=== PATIENT | female | born 1960 | race African-American/Black ===

== ENCOUNTER 2017-05-07 12:19 | Emergency (ER) | payer OTHER ==
[2017-05-07] MEDS: IV NORMAL SALINE 1000ML BAG 1,000 ML IV (13:10)
[2017-05-07 13:13] LABS: ADD MAN DIFF? NO
[2017-05-07 13:17] LABS: BASO % 1 % (0-3); EOS % 0 % (0-3); HEMATOCRIT 41.1 % (36.0-47.0); HEMOGLOBIN 14.4 g/dL (12.0-15.5); LYMPH # 1.5 x10^3/uL (1.0-4.8); LYMPH % 27 % (24-48); MEAN CORPUSCULAR HEMOGLOBIN 36 pg (25-35); MEAN CORPUSCULAR HGB CONC 35 g/dL (31-37); MEAN CORPUSCULAR VOLUME 103 fL (79-100); MONO # 0.6 x10^3/uL (0.0-1.1); MONO % 10 % (0-9); NEUT # 3.5 x10^3uL (1.8-7.7); NEUT % 62 % (31-73); PLATELET COUNT 210 x10^3/uL (140-400); RED BLOOD COUNT 3.97 x10^6/uL (3.50-5.40); RED CELL DISTRIBUTION WIDTH 13.8 % (11.5-14.5); WHITE BLOOD COUNT 5.6 x10^3/uL (4.0-11.0)
[2017-05-07 13:28] LABS: PARTIAL THROMBOPLASTIN TIME 26 SEC (24-38); PROTHROMBIN TIME PATIENT 12.6 SEC (11.7-14.0)
[2017-05-07 13:36] LABS: D-DIMER 0.32 ug/mlFEU (0.00-0.50)
[2017-05-07 13:48] LABS: INFLUENZA A PATIENT NEGATIVE (NEGATIVE); INFLUENZA B PATIENT NEGATIVE (NEGATIVE); OBC FLU VALID
[2017-05-07 14:07] LABS: ANION GAP 13 (6-14); BLOOD UREA NITROGEN 8 mg/dL (7-20); BUN/CREATININE RATIO 10 (6-20); CALCIUM 9.3 mg/dL (8.5-10.1); CARBON DIOXIDE 27 mmol/L (21-32); CHLORIDE 101 mmol/L (98-107); CREATININE 0.8 mg/dL (0.6-1.0); GFR 89.5; GLUCOSE 111 mg/dL (70-99); POTASSIUM 3.5 mmol/L (3.5-5.1); SODIUM 141 mmol/L (136-145)
[2017-05-07 14:08] LABS: ETHANOL < 10 mg/dL (0-10)
[2017-05-07 14:14] LABS: ALBUMIN 3.8 g/dL (3.4-5.0); ALK PHOS 92 U/L (46-116); ALT (SGPT) 33 U/L (14-59); AST (SGOT) 38 U/L (15-37); CREATINE KINASE 83 U/L (26-192); MAGNESIUM 1.9 mg/dL (1.8-2.4); TOTAL BILIRUBIN 0.7 mg/dL (0.2-1.0); TOTAL PROTEIN 7.6 g/dL (6.4-8.2)
[2017-05-07 14:17] LABS: TROPONINI < 0.017 ng/mL (0.000-0.055)
[2017-05-07 14:21] LABS: NT-PRO BNP 186 pg/mL (0-124)
== END 2017-05-07 15:09 | disposition home or self-care (01) ==
LOC: ER 12:19
DX: R07.89 Other chest pain (principal); R06.02 Shortness of breath; R06.00 Dyspnea, unspecified; R20.2 Paresthesia of skin; I10 Essential (primary) hypertension; F12.10 Cannabis abuse, uncomplicated; Z88.2 Allergy status to sulfonamides; F10.10 Alcohol abuse, uncomplicated; Z88.6 Allergy status to analgesic agent
CPT/HCPCS: 36415; 71045; 80053; 82550; 83735; 83880; 84484; 85025; 85379; 85610; 85730; 87804; 87804-59; 93005; 96361; 96374; 99285-25; G0480; J2060; J7030

== ENCOUNTER 2019-09-23 17:50 | Inpatient (IN) | payer MEDICAID ==
[~2019-09-23] VITALS: Ht 165.1 cm; Wt 59.2 kg
[~2019-09-23 17:50] MED LIST: ALPR0.25 PO; ALPR1TAB2 PO; AMLO10TA8 PO; BENZ1LOZ4 PO; CARV6.2511 PO; CETI10TA24 PO; DIPH25CA58 PO; DOXY100T PO; GUAI600T47 PO; HYDR-2145 PO; HYDR-2761 PO; HYDR-2769 PO; LEVO500T59 PO; LISI-338 PO; MORP-15 PO; NITR100C62 PO; PANT40TA77 PO; SERT25TA PO
--- NOTE | 2019-09-23 18:15 | PHYS DOC ---
Past Medical History Past Medical History: Anxiety, Hypertension, Other Additional Past Medical Histor: seasonal allergies, osteoporosis, RA Past Surgical History: Hysterectomy, Oophorectomy, Other Additional Past Surgical Histo: left ankle fracture repair, right hand surgery Smoking Status: Current Every Day Smoker Alcohol Use: Heavy Drug Use: Marijuana General Adult EDM: Chief Complaint: CHEST PAIN HPI: HPI: Patient is a 58 year old female who presents with states 2 days ago began having chest pressure that is generalized over the whole chest making her short of air. Patient is very anxious. She has been under a lot of stress and having a lot of anxiety due to a in the family. She states that she is been trying to stop smoking but has been smoking because of a in the family. She states that she is had some nausea and vomiting. She states that she cannot take aspirin or ibuprofen or naproxen because it makes her very sick and makes her pass out. Patient states that she has a history of hypertension, RA, osteoporosis, anxiety. Patient is very tearful and anxious in the room. Patient rates her pressure chest pain a 10. Review of Systems: Review of Systems: Respiratory: Denies cough. + shortness of breath. [] Cardiovascular: chest pain. Denies edema. [] Heart Score: HEART Score for Chest Pain: HEART Score for Chest Pain Response (Comments) Value History Moderately Suspicious 1 ECG Nonspecific Repolarizatio 1 Age >45 - < 65 1 Risk Factors >3 Risk Factors or Hx CAD 2 Troponin < Normal Limit 0 Total 5 Risk Factors: Risk Factors: DM, Current or recent (<one month) smoker, HTN, HLP, family history of CAD, obesity. Risk Scores: Score 0 - 3: 2.5% MACE over next 6 weeks - Discharge Home Score 4 - 6: 20.3% MACE over next 6 weeks - Admit for Clinical Observation Score 7 - 10: 72.7% MACE over next 6 weeks - Early Invasive Strategies Allergies: Allergies: Allergies Coded Allergies Type Severity Reaction Last Updated Verified Sulfa (Sulfonamide Antibiotics) Allergy Intermediate 08/09/17 Yes aspirin Allergy Intermediate 09/11/15 Yes ibuprofen Allergy Intermediate 09/11/15 Yes naproxen Allergy Intermediate 08/09/17 Yes Physical Exam: PE: Constitutional: Well developed, well nourished, no acute distress, non-toxic appearance. [] HENT: Normocephalic, atraumatic, bilateral external ears normal, oropharynx moist, no oral exudates, nose normal. [] Eyes: PERRLA, EOMI, conjunctiva normal, no discharge. [] Neck: Normal range of motion, no tenderness, supple, no stridor. [] Cardiovascular:Heart rate regular rhythm, no murmur [] Lungs & Thorax: Bilateral breath sounds clear to auscultation [] Abdomen: Bowel sounds normal, soft, no tenderness, no masses, no pulsatile masses. [] Skin: Warm, dry, no erythema, no rash. [] Back: No tenderness, no CVA tenderness. [] Extremities: No tenderness, no cyanosis, no clubbing, ROM intact, no edema. [] Neurologic: Alert and oriented X 3, normal motor function, normal sensory function, no focal deficits noted. [] Psychologic: Anxious, affect normal, judgement normal, mood normal. [] EKG: EK and read by Dr. Monroy is sinus rhythm with LVH repolarization abnormality and PVCs. No STEMI. [] Radiology/Procedures: Radiology/Procedures: [] Impression: [facility] [address] [facility] [place] [address] IMAGING REPORT Signed PATIENT: BERNABE NELSON JACCOUNT: [id number] : 1960 LOCATION: ER AGE: 58 SEX: F EXAM STATUS: REG ER ORD. PHYSICIAN: AMALIA TEIXEIRA APRN REASON: chest pain, chills x3 days PROCEDURE: PORTABLE CHEST 1V Exam: Chest one view INDICATION: Chest pain TECHNIQUE: Frontal view of the chest Comparisons: 12/18/2018 FINDINGS: The cardiomediastinal silhouette and pulmonary vessels are within normal limits. The lung and pleural spaces are clear. IMPRESSION: No acute cardiopulmonary process. Electronically signed by: Sherif Stringer MD (09/23/2019 6:53 PM) [id number] DICTATED and SIGNED BY: SHERIF STRINGER MD DATE: 09/23/19 1853 Course & Med Decision Making: Course & Med Decision Making Pertinent Labs and Imaging studies reviewed. (See chart for details) Alert and oriented. Speaks in full complete sentences. Very anxious and tearful. No extremity swelling. Lungs are clear to auscultation all lobes. Vital signs are within normal limits. EKG shows sinus rhythm with ventricular premature complexes but no STEMI. Skin pink warm and dry. Patient has hypo-kalemia. Patient's potassium is 2.4. I ordered potassium p.o. I spoke to Dr. Abraham for admission. [] Dinesh Disclaimer: Dinesh Disclaimer: This electronic medical record was generated, in whole or in part, using a voice recognition dictation system. Departure Departure Impression: Primary Impression: Chest pain Qualified Codes: R07.9 - Chest pain, unspecified Additional Impression: Hypokalemia Disposition: ADMITTED INPATIENT Admitting Physician: HARLEY Condition: STABLE Referrals: NO PCP (PCP) Justicifation of Admission Dx: Justifications for Admission: Justification of Admission Dx: Yes CHF: Sev. Electrolyte Abnormal Angina: Symp at Rest AMALIA TEIXEIRA CLINICAL NURSE OCCUPATIONAL MEDICINE Sep 23, 2019 18:15
--- NOTE | 2019-09-23 18:20 | EKG ---
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
[2019-09-23 18:42] LABS: BASO # 0.1 x10^3/uL (0.0-0.2); BASO % 1 % (0-3); EOS # 0.1 x10^3/uL (0.0-0.7); EOS % 2 % (0-3); HEMOGLOBIN 13.4 g/dL (12.0-15.5); LYMPH # 1.5 x10^3/uL (1.0-4.8); LYMPH % 18 % (24-48); MEAN CORPUSCULAR HEMOGLOBIN 36 pg (25-35); MEAN CORPUSCULAR HGB CONC 35 g/dL (31-37); MEAN CORPUSCULAR VOLUME 103 fL (79-100); MONO # 1.2 x10^3/uL (0.0-1.1); MONO % 15 % (0-9); NEUT # 5.4 x10^3/uL (1.8-7.7); NEUT % 65 % (31-73); PLATELET COUNT 360 x10^3/uL (140-400); RED BLOOD COUNT 3.68 x10^6/uL (3.50-5.40); RED CELL DISTRIBUTION WIDTH 13.7 % (11.5-14.5); WHITE BLOOD COUNT 8.3 x10^3/uL (4.0-11.0)
[2019-09-23 18:52] LABS: PROTHROMBIN TIME PATIENT 13.6 SEC (11.7-14.0)
--- NOTE | 2019-09-23 18:56 | RAD ---
Exam: Chest one view INDICATION: Chest pain TECHNIQUE: Frontal view of the chest Comparisons: 12/18/2018 FINDINGS: The cardiomediastinal silhouette and pulmonary vessels are within normal limits. The lung and pleural spaces are clear. IMPRESSION: No acute cardiopulmonary process. Electronically signed by: Sherif Queen MD (09/23/2019 6:53 PM) [id number]
[2019-09-23 19:03] LABS: ALBUMIN 3.1 g/dL (3.4-5.0); ALBUMIN/GLOBULIN RATIO 0.6 (1.0-1.7); CALCIUM 9.1 mg/dL (8.5-10.1); CREATININE 0.8 mg/dL (0.6-1.0); GFR 88.8; TOTAL BILIRUBIN 0.6 mg/dL (0.2-1.0); TOTAL PROTEIN 8.1 g/dL (6.4-8.2)
[2019-09-23 19:06] LABS: POTASSIUM 2.4 mmol/L (3.5-5.1)
[2019-09-23] MEDS ORDERED: fentaNYL PF VIAL 100 MCG/2 ML VIAL IVP ONE (19:15)
[2019-09-23] MEDS ORDERED: ONDANSETRON PF 4 MG/2 ML VIAL. IVP ONE (19:15)
[2019-09-23] MEDS ORDERED: POTASSIUM CHLORIDE 20 MEQ TABLET.ER. PO ONE ×2 (19:15→21:15)
[2019-09-23] MEDS ORDERED: ONDANSETRON PF 4 MG/2 ML VIAL. IV PRN (19:30)
[2019-09-23] MEDS ORDERED: IV NORMAL SALINE 1000ML BAG 1,000 ML IV ONE (19:45)
[2019-09-23 20:07] LABS: BILIRUBIN,URINE SMALL (NEG); CLARITY,URINE CLEAR; COLOR,URINE AMBER; NITRITE,URINE NEGATIVE (NEG); PROTEIN,URINE NEGATIVE (NEG-TRACE)
[2019-09-23 20:15] LABS: SQUAMOUS EPITHELIAL CELL,UR FEW /LPF
[2019-09-23 20:16] LABS: AMORPHOUS SEDIMENT,UR PRESENT /HPF; BACTERIA,URINE 0 /HPF (0-FEW); RBC,URINE 0 /HPF (0-2)
[2019-09-23 20:18] LABS: BARBITURATES NEG (NEG); BENZODIAZEPINES POS (NEG); CANNABINOIDS POS (NEG); COCAINE NEG (NEG); METHADONE NEG (NEG); OPIATES POS (NEG); PHENCYCLIDINE NEG (NEG)
[2019-09-23 20:19] LABS: AMPHETAMINE/METHAMPHETAMINE NEG (NEG)
[2019-09-23] MEDS ORDERED: MAGNESIUM SULFATE 2GM 50 ML IV ONE (21:00)
--- NOTE | 2019-09-23 21:01 | PDOC1 ---
History and Physical Date of Admission Date of Admission DATE: 09/23/19 TIME: 20:57 Source Source: Chart review, Patient History of Present Illness History of Present Illness Ms. Krissy diaz is a 58 year old female admit for worsening chest pressure that is generalized over the whole chest making her short of air. Pain has worsened over 2 days, and she is very anxious. marked stress, she has started smoking cigarettes again. She has been under a lot of stress and having a lot of anxiety due to a in the family. She states that she is had some nausea and vomiting. She states that she cannot take aspirin or ibuprofen or naproxen because it makes her very sick and makes her pass out. Patient states that she has a history of hypertension, RA, osteoporosis, anxiety. Patient is very tearful and anxious in the room. Patient rates her pressure chest pain a 9 out of 10. Past Medical History Cardiovascular: HTN Pulmonary: Asthma CENTRAL NERVOUS SYSTEM: Other GI: No pertinent hx Heme/Onc: No pertinent hx Hepatobiliary: No pertinent hx Psych: Anxiety Musculoskeletal: Osteoarthritis Rheumatologic: Rheumatoid arthritis Infectious disease: No pertinent hx Renal/: No pertinent hx Endocrine: Osteoporosis Past Surgical History Past Surgical History: Hysterectomy, Other Family History Family History: Heart Disease Social History Smoke: 1 pack per day ALCOHOL: rare Drugs: None Current Problem List Problem List Problems Medical Problems: (1) Chest pain Status: Acute (2) Hypokalemia Status: Acute Current Medications Current Medications Current Medications Potassium Chloride (Klor-Con) 60 meq 1X ONCE PO Last administered on 09/23/19at 19:26; Start 09/23/19 at 19:15; Stop 09/23/19 at 19:16; Status DC Ondansetron HCl (Zofran) 4 mg 1X ONCE IVP Last administered on 09/23/19at 19:25; Start 09/23/19 at 19:15; Stop 09/23/19 at 19:16; Status DC Fentanyl Citrate (Fentanyl 2ml Vial) 50 mcg 1X ONCE IVP Last administered on 09/23/19at 19:26; Start 09/23/19 at 19:15; Stop 09/23/19 at 19:16; Status DC Ondansetron HCl (Zofran) 4 mg PRN Q8HRS PRN IV NAUSEA/VOMITING; Start 09/23/19 at 19:30; Stop 09/24/19 at 19:29 Fentanyl Citrate (Fentanyl 2ml Vial) 50 mcg PRN Q1HR PRN IV PAIN; Start 09/23/19 at 19:30; Stop 09/24/19 at 19:29 Sodium Chloride 1,000 ml @ 1,000 mls/hr 1X ONCE IV Last administered on 09/23/19at 19:55; Start 09/23/19 at 19:45; Stop 09/23/19 at 20:44; Status DC Active Scripts Active Mucinex (Guaifenesin) 600 Mg Tablet.er 600 Mg PO BID Sore Throat Lozenge (Benzocaine/Menthol) 1 Each Lozenge 1 Ky PO PRN Q2HRS PRN Doxycycline Hyclate 100 Mg Tablet 100 Mg PO BID Morphine Sulfate Er (Morphine Sulfate) 15 Mg Tablet.er 15 Mg PO BID Xanax (Alprazolam) 1 Mg Tablet 1 Tab PO TID PRN Pantoprazole Sodium (Pantoprazole Sodium) 40 Mg Tablet.dr 40 Mg PO DAILYAC Reported Levaquin (Levofloxacin) 500 Mg Tablet 1 Tab PO DAILY Amlodipine Besylate 10 Mg Tablet 10 Mg PO DAILY Carvedilol (Carvedilol) 6.25 Mg Tablet 1 Tab PO BID Benadryl (Diphenhydramine Hcl) 25 Mg Capsule 1 Cap PO QHS Zyrtec (Cetirizine Hcl) 10 Mg Tablet 1 Tab PO DAILY Allergies Allergies: Coded Allergies: Sulfa (Sulfonamide Antibiotics) (Verified Allergy, Intermediate, 08/09/17) aspirin (Verified Allergy, Intermediate, 09/11/15) ibuprofen (Verified Allergy, Intermediate, 09/11/15) naproxen (Verified Allergy, Intermediate, 08/09/17) ROS General: YES: Fatigue, Malaise; No: Chills, Night Sweats, Appetite, Other PSYCHOLOGICAL ROS: No: Anxiety, Behavioral Disorder, Concentration difficultie, Decreased libido, Depression, Disorientation, Hallucinations, Hostility, Irritablity, Memory difficulties, Mood Swings, Obsessive thoughts, Physical abuse, Sexual abuse, Sleep disturbances, Suicidal ideation, Other Eyes: No Blurry vision, No Decreased vision, No Double vision, No Dry eyes, No Excessive tearing, No Eye Pain, No Itchy Eyes, No Loss of vision, No Photophobia, No Scotomata, No Uses contacts, No Uses glasses, No Other HEENT: YES: Heacaches; No: Visual Changes, Hearing change, Nasal congestion, Nasal discharge, Oral lesions, Sinus pain, Sore Throat, Epistaxis, Sneezing, Snoring, Tinnitus, Vertigo, Vocal changes, Other Respiratory: No: Cough, Hemoptysis, Orthopnea, Pleuritic Pain, Shortness of breath, SOB with excertion, Sputum Changes, Stridor, Tachypnea, Wheezing, Other Cardiovascular: yes Chest Pain Gastrointestinal: Yes Nausea; No Vomiting, No Abdominal Pain, No Diarrhea, No Constipation, No Melena, No Hematochezia, No Other Genitourinary: No Dysuria, No Frequency, No Incontinence, No Hematuria, No Retention, No Discharge, No Urgency, No Pain, No Flank Pain, No Other, No , No , No , No , No , No , No Musculoskeletal: Yes Joint Stiffness, Yes Muscular Weakness; No Gait Disturbance, No Joint Pain, No Joint Swelling, No Muscle Pain, No Pain In:, No Swelling In:, No Other Neurological: No Behavorial Changes, No Bowel/Bladder ControlChng, No Confusion, No Dizziness, No Gait Disturbance, No Headaches, No Impaired Coord/balance, No Memory Loss, No Numbness/Tingling, No Seizures, No Speech Problems, No Tremors, No Visual Changes, No Weakness, No Other Skin: Yes Dry Skin Physical Exam General: Alert, Cooperative, mild distress HEENT: Atraumatic, Mucous membr. moist/pink Lungs: Normal air movement Heart: RRR, no gallops, no murmurs Extremities: No edema Skin: No breakdown, No significant lesion Neuro: Normal speech, Sensation intact Psych/Mental Status: Mental status NL, Mood NL Vitals Vitals Vital Signs Date Time Temp Pulse Resp B/P (MAP) Pulse Ox O2 Delivery O2 Flow Rate FiO2 09/23/19 19:26 16 100 Room Air 09/23/19 18:01 98.5 102 141/98 (112) 98.5 Labs Labs Laboratory Tests Test 09/23/19 18:33 09/23/19 19:55 White Blood Count 8.3 x10^3/uL (4.0-11.0) Red Blood Count 3.68 x10^6/uL (3.50-5.40) Hemoglobin 13.4 g/dL (12.0-15.5) Hematocrit 38.0 % (36.0-47.0) Mean Corpuscular Volume 103 fL (79-100) Mean Corpuscular Hemoglobin 36 pg (25-35) Mean Corpuscular Hemoglobin Concent 35 g/dL (31-37) Red Cell Distribution Width 13.7 % (11.5-14.5) Platelet Count 360 x10^3/uL (140-400) Neutrophils (%) (Auto) 65 % (31-73) Lymphocytes (%) (Auto) 18 % (24-48) Monocytes (%) (Auto) 15 % (0-9) Eosinophils (%) (Auto) 2 % (0-3) Basophils (%) (Auto) 1 % (0-3) Neutrophils # (Auto) 5.4 x10^3/uL (1.8-7.7) Lymphocytes # (Auto) 1.5 x10^3/uL (1.0-4.8) Monocytes # (Auto) 1.2 x10^3/uL (0.0-1.1) Eosinophils # (Auto) 0.1 x10^3/uL (0.0-0.7) Basophils # (Auto) 0.1 x10^3/uL (0.0-0.2) Prothrombin Time 13.6 SEC (11.7-14.0) Prothromb Time International Ratio 1.1 (0.8-1.1) Sodium Level 139 mmol/L (136-145) Potassium Level 2.4 mmol/L (3.5-5.1) Chloride Level 98 mmol/L (98-107) Carbon Dioxide Level 28 mmol/L (21-32) Anion Gap 13 (6-14) Blood Urea Nitrogen 7 mg/dL (7-20) Creatinine 0.8 mg/dL (0.6-1.0) Estimated GFR (Cockcroft-Gault) 88.8 BUN/Creatinine Ratio 9 (6-20) Glucose Level 138 mg/dL (70-99) Calcium Level 9.1 mg/dL (8.5-10.1) Total Bilirubin 0.6 mg/dL (0.2-1.0) Aspartate Amino Transf (AST/SGOT) 27 U/L (15-37) Alanine Aminotransferase (ALT/SGPT) 14 U/L (14-59) Alkaline Phosphatase 150 U/L (46-116) Troponin I Quantitative < 0.017 ng/mL (0.000-0.055) HN-Ail-O-Type Natriuretic Peptide 246 pg/mL (0-124) Total Protein 8.1 g/dL (6.4-8.2) Albumin 3.1 g/dL (3.4-5.0) Albumin/Globulin Ratio 0.6 (1.0-1.7) Lipase 81 U/L (73-393) Urine Collection Type Unknown Urine Color Elicia Urine Clarity Clear Urine pH 6.0 (<5.0-8.0) Urine Specific Dawn 1.020 (1.000-1.030) Urine Protein Negative mg/dL (NEG-TRACE) Urine Glucose (UA) Negative mg/dL (NEG) Urine Ketones (Stick) Negative mg/dL (NEG) Urine Blood Negative (NEG) Urine Nitrite Negative (NEG) Urine Bilirubin Small (NEG) Urine Urobilinogen Dipstick 1.0 mg/dL (0.2 mg/dL) Urine Leukocyte Esterase Small (NEG) Urine RBC 0 /HPF (0-2) Urine WBC 5-10 /HPF (0-4) Urine Squamous Epithelial Cells Few /LPF Urine Amorphous Sediment Present /HPF Urine Bacteria 0 /HPF (0-FEW) Urine Mucus Slight /LPF Urine Opiates Screen Pos (NEG) Urine Methadone Screen Neg (NEG) Urine Barbiturates Neg (NEG) Urine Phencyclidine Screen Neg (NEG) Urine Amphetamine/Methamphetamine Neg (NEG) Urine Benzodiazepines Screen Pos (NEG) Urine Cocaine Screen Neg (NEG) Urine Cannabinoids Screen Pos (NEG) Urine Ethyl Alcohol Neg (NEG) Laboratory Tests Test 09/23/19 18:33 09/23/19 19:55 White Blood Count 8.3 x10^3/uL (4.0-11.0) Red Blood Count 3.68 x10^6/uL (3.50-5.40) Hemoglobin 13.4 g/dL (12.0-15.5) Hematocrit 38.0 % (36.0-47.0) Mean Corpuscular Volume 103 fL (79-100) Mean Corpuscular Hemoglobin 36 pg (25-35) Mean Corpuscular Hemoglobin Concent 35 g/dL (31-37) Red Cell Distribution Width 13.7 % (11.5-14.5) Platelet Count 360 x10^3/uL (140-400) Neutrophils (%) (Auto) 65 % (31-73) Lymphocytes (%) (Auto) 18 % (24-48) Monocytes (%) (Auto) 15 % (0-9) Eosinophils (%) (Auto) 2 % (0-3) Basophils (%) (Auto) 1 % (0-3) Neutrophils # (Auto) 5.4 x10^3/uL (1.8-7.7) Lymphocytes # (Auto) 1.5 x10^3/uL (1.0-4.8) Monocytes # (Auto) 1.2 x10^3/uL (0.0-1.1) Eosinophils # (Auto) 0.1 x10^3/uL (0.0-0.7) Basophils # (Auto) 0.1 x10^3/uL (0.0-0.2) Prothrombin Time 13.6 SEC (11.7-14.0) Prothromb Time International Ratio 1.1 (0.8-1.1) Sodium Level 139 mmol/L (136-145) Potassium Level 2.4 mmol/L (3.5-5.1) Chloride Level 98 mmol/L (98-107) Carbon Dioxide Level 28 mmol/L (21-32) Anion Gap 13 (6-14) Blood Urea Nitrogen 7 mg/dL (7-20) Creatinine 0.8 mg/dL (0.6-1.0) Estimated GFR (Cockcroft-Gault) 88.8 BUN/Creatinine Ratio 9 (6-20) Glucose Level 138 mg/dL (70-99) Calcium Level 9.1 mg/dL (8.5-10.1) Total Bilirubin 0.6 mg/dL (0.2-1.0) Aspartate Amino Transf (AST/SGOT) 27 U/L (15-37) Alanine Aminotransferase (ALT/SGPT) 14 U/L (14-59) Alkaline Phosphatase 150 U/L (46-116) Troponin I Quantitative < 0.017 ng/mL (0.000-0.055) SF-Exp-O-Type Natriuretic Peptide 246 pg/mL (0-124) Total Protein 8.1 g/dL (6.4-8.2) Albumin 3.1 g/dL (3.4-5.0) Albumin/Globulin Ratio 0.6 (1.0-1.7) Lipase 81 U/L (73-393) Urine Collection Type Unknown Urine Color Elicia Urine Clarity Clear Urine pH 6.0 (<5.0-8.0) Urine Specific Dawn 1.020 (1.000-1.030) Urine Protein Negative mg/dL (NEG-TRACE) Urine Glucose (UA) Negative mg/dL (NEG) Urine Ketones (Stick) Negative mg/dL (NEG) Urine Blood Negative (NEG) Urine Nitrite Negative (NEG) Urine Bilirubin Small (NEG) Urine Urobilinogen Dipstick 1.0 mg/dL (0.2 mg/dL) Urine Leukocyte Esterase Small (NEG) Urine RBC 0 /HPF (0-2) Urine WBC 5-10 /HPF (0-4) Urine Squamous Epithelial Cells Few /LPF Urine Amorphous Sediment Present /HPF Urine Bacteria 0 /HPF (0-FEW) Urine Mucus Slight /LPF Urine Opiates Screen Pos (NEG) Urine Methadone Screen Neg (NEG) Urine Barbiturates Neg (NEG) Urine Phencyclidine Screen Neg (NEG) Urine Amphetamine/Methamphetamine Neg (NEG) Urine Benzodiazepines Screen Pos (NEG) Urine Cocaine Screen Neg (NEG) Urine Cannabinoids Screen Pos (NEG) Urine Ethyl Alcohol Neg (NEG) VTE Prophylaxis Ordered VTE Prophylaxis Devices: No VTE Pharmacological Prophylaxi: Yes Assessment/Plan Assessment/Plan chest pain, angina, r/o ACS anxiety disorder, reassurance given tobacco use disorder marked hypokalemia RA htn she has been seeing Emily Chen for primary care but is thinking of changing, she is upset that she is back in the hospital. Justicifation of Admission Dx: Justifications for Admission: Justification of Admission Dx: Yes Angina: New-Onset (with hypokalemia) DENVER CAVAZOS MD Sep 23, 2019 21:01
[2019-09-23] MEDS ORDERED: NICOTINE 21MG PATCH. TD PRN (21:15)
[2019-09-23] MEDS ORDERED: BENZOCAINE/MENTHOL LOZENGE. PO PRN (21:15)
[2019-09-23 21:47] VITALS: BP 166/82
[2019-09-23] MEDS: fentaNYL PF VIAL 100 MCG/2 ML VIAL IV PRN (22:04)
[2019-09-23 22:15] VITALS: BP 143/90
[2019-09-23] MEDS: ALPRAZolam 1 MG TABLET PO PRN (22:43)
[2019-09-23] MEDS ORDERED: MORPHINE IR 15 MG TABLET PO ONE (23:00)
[2019-09-24] MEDS: oxyCODONE/APAP 5/325 1 TAB TABLET PO PRN ×4 (00:08→17:30)
[2019-09-24 03:01] VITALS: BP 123/91
[2019-09-24 07:00] VITALS: BP 111/51
[2019-09-24] MEDS: fentaNYL PF VIAL 100 MCG/2 ML VIAL IV PRN ×2 (07:54→11:45)
[2019-09-24] MEDS: ALPRAZolam 1 MG TABLET PO PRN ×2 (07:54→17:30)
[2019-09-24] MEDS: CARVEDILOL 6.25 MG TABLET. PO SCH ×2 (08:00→17:00)
[2019-09-24] MEDS: CETIRIZINE HCL 10 MG TABLET. PO SCH (08:43)
[2019-09-24] MEDS: POTASSIUM CHLORIDE 20 MEQ TABLET.ER. PO SCH (08:43)
[2019-09-24] MEDS: amLODIPine BESYLATE 10 MG TABLET PO SCH (08:43)
[2019-09-24] MEDS: MORPHINE IR 15 MG TABLET PO SCH ×2 (08:43→21:06)
[2019-09-24] MEDS: ENOXAPARIN 40 MG/0.4 ML SYRINGE. SQ SCH (08:44)
--- NOTE | 2019-09-24 10:16 | PDOC2 ---
CARDIAC CONSULT DATE OF CONSULT Date of Consult DATE: 09/24/19 TIME: 09:32 REASON FOR CONSULT Reason for Consult: Chest pain REFERRING PHYSICIAN Referring Physician: Bernadette SOURCE Source: Chart review, Patient HISTORY OF PRESENT ILLNESS HISTORY OF PRESENT ILLNESS This is an anxious 58 yo female admitted for complains of chest pain and abdominal pain. Her pain is mainly from ribcage region to upper abdomen then to chest. This is sharp sometimes stabbing. Her chest pain is trigerred with palpation and positional changes as well as deep breathing. Reports that in the last 4 days she has not been feeling well weak. She tried to medicate herself and dont known what is going and decided to take the rest of her antibiotics which she prematurely discontinued from before from unknown time since she was getting better. She had 1 bout of vomiting but has been watery stools and everytime she eats she gets diarrhea. She has not really eaten much of anything for about 4 days now and feels.weak. No SOA per se but unable to take a deep breath since it hurts for her to take a deep breath. She did fall a week ago with no trauma due to feeling weak. PAST MEDICAL HISTORY Past Medical History Cardiovascular: HTN GI: GERD Heme/Onc: No pertinent hx Hepatobiliary: Hep C Psych: Anxiety Musculoskeletal: Osteoarthritis Rheumatologic: Rheumatoid arthritis (?) ENT: Allergic Rhinitis Renal/: No pertinent hx Endocrine: Osteoporosis Dermatology: No pertinent hx PAST SURGICAL HISTORY Past Surgical History Hysterectomy, Other (left ankle and hand surgery) FAMILY HISTORY Family History: Heart Disease (father) SOCIAL HISTORY Smoke: <1 pack per day ALCOHOL: rare Drugs: None Lives: with Family CURRENT MEDICATIONS CURRENT MEDICATIONS Current Medications Medications (Trade) Dose Ordered Sig/Neelam Route PRN Reason Start Time Stop Time Status Last Admin Dose Admin Potassium Chloride (Klor-Con) 60 meq 1X ONCE PO 09/23/19 19:15 09/23/19 19:16 DC 09/23/19 19:26 Ondansetron HCl (Zofran) 4 mg 1X ONCE IVP 09/23/19 19:15 09/23/19 19:16 DC 09/23/19 19:25 Fentanyl Citrate (Fentanyl 2ml Vial) 50 mcg 1X ONCE IVP 09/23/19 19:15 09/23/19 19:16 DC 09/23/19 19:26 Fentanyl Citrate (Fentanyl 2ml Vial) 50 mcg PRN Q1HR PRN IV PAIN 09/23/19 19:30 09/24/19 19:29 09/24/19 07:54 Sodium Chloride 1,000 ml @ 1,000 mls/hr 1X ONCE IV 09/23/19 19:45 09/23/19 20:44 DC 09/23/19 19:55 Magnesium Sulfate 50 ml @ 25 mls/hr 1X ONCE IV 09/23/19 21:00 09/23/19 22:59 DC 09/23/19 22:43 Potassium Chloride (Klor-Con) 20 meq DAILY PO 09/24/19 09:00 09/24/19 08:43 Potassium Chloride (Klor-Con) 20 meq 1X ONCE PO 09/23/19 21:15 09/23/19 21:16 DC 09/23/19 22:10 Alprazolam (Xanax) 1 mg PRN TID PRN PO ANXIETY / AGITATION 09/23/19 21:15 09/24/19 07:54 Amlodipine Besylate (Norvasc) 10 mg DAILY PO 09/24/19 09:00 09/24/19 08:43 Cetirizine HCl (ZyrTEC) 10 mg DAILY PO 09/24/19 09:00 09/24/19 08:43 Enoxaparin Sodium (Lovenox 40mg Syringe) 40 mg DAILY SQ 09/24/19 09:00 09/24/19 08:44 Oxycodone/ Acetaminophen (Percocet 5/325) 1 tab PRN Q4HRS PRN PO PAIN 09/23/19 23:00 09/24/19 08:43 Morphine Sulfate (Morphine Ir) 15 mg BID PO 09/24/19 09:00 09/24/19 08:43 Morphine Sulfate (Morphine Ir) 15 mg 1X ONCE PO 09/23/19 23:00 09/23/19 23:07 DC 09/24/19 00:08 ALLERGIES ALLERGIES: Coded Allergies: Sulfa (Sulfonamide Antibiotics) (Verified Allergy, Intermediate, 08/09/17) aspirin (Verified Allergy, Intermediate, 09/11/15) ibuprofen (Verified Allergy, Intermediate, 09/11/15) naproxen (Verified Allergy, Intermediate, 08/09/17) ROS Review of System 14 point ROS evaluated with pertinent positives noted per HPI PHYSICAL EXAM General: Alert, Oriented X3, Cooperative, No acute distress HEENT: Atraumatic, Mucous membr. moist/pink Lungs: Clear to auscultation, Normal air movement Heart: Regular rate (SR), Normal S1, Normal S2, No murmurs Abdomen: Soft, No tenderness Extremities: No cyanosis, No edema Skin: No breakdown, No significant lesion Neuro: Normal speech, Sensation intact Psych/Mental Status: Mental status NL, Mood NL MUSCULOSKELETAL: Osteoarthritic changes both hands VITALS/I&O VITALS/I&O: Vital Signs Date Time Temp Pulse Resp B/P (MAP) Pulse Ox O2 Delivery O2 Flow Rate FiO2 09/24/19 08:43 20 Room Air 09/24/19 08:43 77 111/51 09/24/19 07:00 97.6 98 97.6 I & O 09/23/19 09/23/19 09/24/19 15:00 23:00 07:00 Intake Total 1000 ml 0 ml Balance 1000 ml 0 ml LABS Lab: Laboratory Tests Test 09/23/19 18:33 09/23/19 19:55 09/24/19 05:25 White Blood Count 8.3 x10^3/uL (4.0-11.0) Red Blood Count 3.68 x10^6/uL (3.50-5.40) Hemoglobin 13.4 g/dL (12.0-15.5) Hematocrit 38.0 % (36.0-47.0) Mean Corpuscular Volume 103 fL (79-100) H Mean Corpuscular Hemoglobin 36 pg (25-35) H Mean Corpuscular Hemoglobin Concent 35 g/dL (31-37) Red Cell Distribution Width 13.7 % (11.5-14.5) Platelet Count 360 x10^3/uL (140-400) Neutrophils (%) (Auto) 65 % (31-73) Lymphocytes (%) (Auto) 18 % (24-48) L Monocytes (%) (Auto) 15 % (0-9) H Eosinophils (%) (Auto) 2 % (0-3) Basophils (%) (Auto) 1 % (0-3) Neutrophils # (Auto) 5.4 x10^3/uL (1.8-7.7) Lymphocytes # (Auto) 1.5 x10^3/uL (1.0-4.8) Monocytes # (Auto) 1.2 x10^3/uL (0.0-1.1) H Eosinophils # (Auto) 0.1 x10^3/uL (0.0-0.7) Basophils # (Auto) 0.1 x10^3/uL (0.0-0.2) Prothrombin Time 13.6 SEC (11.7-14.0) Prothrombin Time INR 1.1 (0.8-1.1) Sodium Level 139 mmol/L (136-145) Potassium Level 2.4 mmol/L (3.5-5.1) *L Chloride Level 98 mmol/L (98-107) Carbon Dioxide Level 28 mmol/L (21-32) Anion Gap 13 (6-14) Blood Urea Nitrogen 7 mg/dL (7-20) Creatinine 0.8 mg/dL (0.6-1.0) Estimated GFR (Cockcroft-Gault) 88.8 BUN/Creatinine Ratio 9 (6-20) Glucose Level 138 mg/dL (70-99) H Calcium Level 9.1 mg/dL (8.5-10.1) Total Bilirubin 0.6 mg/dL (0.2-1.0) Aspartate Amino Transferase (AST) 27 U/L (15-37) Alanine Aminotransferase (ALT) 14 U/L (14-59) Alkaline Phosphatase 150 U/L (46-116) H Troponin I Quantitative < 0.017 ng/mL (0.000-0.055) < 0.017 ng/mL (0.000-0.055) OD-Sdn-Q-Type Natriuretic Peptide 246 pg/mL (0-124) H Total Protein 8.1 g/dL (6.4-8.2) Albumin 3.1 g/dL (3.4-5.0) L Albumin/Globulin Ratio 0.6 (1.0-1.7) L Lipase 81 U/L (73-393) Urine Collection Type Unknown Urine Color Elicia Urine Clarity Clear Urine pH 6.0 (<5.0-8.0) Urine Specific [place] 1.020 (1.000-1.030) Urine Protein Negative mg/dL (NEG-TRACE) Urine Glucose (UA) Negative mg/dL (NEG) Urine Ketones (Stick) Negative mg/dL (NEG) Urine Blood Negative (NEG) Urine Nitrite Negative (NEG) Urine Bilirubin Small (NEG) Urine Urobilinogen Dipstick 1.0 mg/dL (0.2 mg/dL) Urine Leukocyte Esterase Small (NEG) Urine RBC 0 /HPF (0-2) Urine WBC 5-10 /HPF (0-4) Urine Squamous Epithelial Cells Few /LPF Urine Amorphous Sediment Present /HPF Urine Bacteria 0 /HPF (0-FEW) Urine Mucus Slight /LPF Urine Opiates Screen Pos (NEG) Urine Methadone Screen Neg (NEG) Urine Barbiturates Neg (NEG) Urine Phencyclidine Screen Neg (NEG) Urine Amphetamine/Methamphetamine Neg (NEG) Urine Benzodiazepines Screen Pos (NEG) Urine Cocaine Screen Neg (NEG) Urine Cannabinoids Screen Pos (NEG) Urine Ethyl Alcohol Neg (NEG) Laboratory Tests 09/23/19 18:33 Laboratory Tests 09/23/19 18:33 ECHOCARDIOGRAM ECHOCARDIOGRAM <Conclusion> The left ventricle is normal size. The left ventricular systolic function is normal and the ejection fraction is within normal range. The Ejection Fraction is 60-65%. There is no significant aortic valvular stenosis. Doppler and Color Flow revealed no significant aortic regurgitation. Doppler and Color-flow revealed trace mitral regurgitation. Doppler and Color Flow revealed no tricuspid valve regurgitation noted. The ascending aorta is mildly dilated at 3.4 cm. DATE: 12/18/18 1607 ASSESSMENT/PLAN ASSESSMENT/PLAN 1. Atypical CP: doubt ACS. appears to be MSK 2. Abdominal pain with diarrhea and vomiting: defer to PCP. Recent ABx last week 3. HTN: controlled 4. Tobaccoism 5. Prolonged QTc: likely inaccurate with noted u wave associated with hypokalemia 6. Hypokalemia: due to GI symptoms 7. Short NC interval: same as before, Potential underlying prexcitation but currently no associated arrhythmias or presyncopal events. 8. Anxiety 9. Drug seeking behavior?: out of percocet. UDS + for opiates and benzos 10. Substance abuse: +marijuana but denies Recommendations 1. BMP and Mg. Replace K and Mg as warranted. Check TSH, T4 and CK 2. Will repeat EKG. Will obtain TTE and note any changes. 3. Monitor rhythm. 4. Smoking cessation RICKIE LOUIE ANALYTICAL CONSULTANT Sep 24, 2019 10:16
[2019-09-24 10:30] LABS: CALCIUM 8.7 mg/dL (8.5-10.1); CREATININE 0.6 mg/dL (0.6-1.0); GFR 123.8; MAGNESIUM 2.3 mg/dL (1.8-2.4); POTASSIUM 3.9 mmol/L (3.5-5.1)
[2019-09-24 10:32] LABS: CHOLESTEROL/HDL RATIO 2.8
[2019-09-24 10:39] LABS: FREE T4 1.19 ng/dL (0.76-1.46); THYROID STIM HORMONE (TSH) 2.658 uIU/mL (0.358-3.74)
[2019-09-24] MEDS ORDERED: ALBUTEROL SULFATE 2.5 MG/3 ML NEBU. NEB PRN (10:45)
--- NOTE | 2019-09-24 10:46 | PDOC ---
PROGRESS NOTES Chief Complaint Chief Complaint A/P: Chest pain - likely costochondritis vs GERD vs esophagitis from vomiting Shortness of breath - seems to be having an asthma exacerbation Abdominal pain with diarrhea and vomiting - possibly antibiotic related. will check c diff HTN: controlled Tobaccoism - counseled on cessation Prolonged QTc: likely inaccurate with noted u wave associated with hypokalemia Hypokalemia - due to GI symptoms Short TN interval - same as before, Potential underlying prexcitation but currently no associated arrhythmias or presyncopal events. Anxiety Drug seeking behavior - UDS + for opiates and benzos. Has chronic meds for pain Substance abuse - +marijuana but denies History of Present Illness History of Present Illness Ms Rey is a 58yo F w/ PMHX RA, HTN, allergies, asthma, anxiety, chronic back pain, anxiety admitted for worsening chest pressure that is generalized over the whole chest making her short of air. Pain has worsened over 2 days, and she is very anxious. marked stress, she has started smoking cigarettes again. She has been under a lot of stress and having a lot of anxiety due to a in the family. She states that she is had some nausea and vomiting. She states that she cannot take aspirin or ibuprofen or naproxen because it makes her very sick and makes her pass out. Patient states that she has a history of hypertension, RA, osteoporosis, anxiety. Patient is very tearful and anxious in the room. Patient rates her pressure chest pain a 9 out of 10 in a band-like distribution. Vitals Vitals Vital Signs Date Time Temp Pulse Resp B/P (MAP) Pulse Ox O2 Delivery O2 Flow Rate FiO2 09/24/19 09:43 18 Room Air 09/24/19 08:43 77 111/51 09/24/19 07:00 97.6 98 97.6 Physical Exam General: Alert, Oriented X3, Cooperative, No acute distress Heart: Regular rate (SR), Normal S1, Normal S2, No murmurs Lungs: Clear Abdomen: Soft, No tenderness Extremities: No cyanosis, No edema Skin: No breakdown, No significant lesion Labs LABS Laboratory Tests Test 09/23/19 18:33 09/23/19 19:55 09/24/19 05:25 White Blood Count 8.3 x10^3/uL (4.0-11.0) Red Blood Count 3.68 x10^6/uL (3.50-5.40) Hemoglobin 13.4 g/dL (12.0-15.5) Hematocrit 38.0 % (36.0-47.0) Mean Corpuscular Volume 103 fL (79-100) Mean Corpuscular Hemoglobin 36 pg (25-35) Mean Corpuscular Hemoglobin Concent 35 g/dL (31-37) Red Cell Distribution Width 13.7 % (11.5-14.5) Platelet Count 360 x10^3/uL (140-400) Neutrophils (%) (Auto) 65 % (31-73) Lymphocytes (%) (Auto) 18 % (24-48) Monocytes (%) (Auto) 15 % (0-9) Eosinophils (%) (Auto) 2 % (0-3) Basophils (%) (Auto) 1 % (0-3) Neutrophils # (Auto) 5.4 x10^3/uL (1.8-7.7) Lymphocytes # (Auto) 1.5 x10^3/uL (1.0-4.8) Monocytes # (Auto) 1.2 x10^3/uL (0.0-1.1) Eosinophils # (Auto) 0.1 x10^3/uL (0.0-0.7) Basophils # (Auto) 0.1 x10^3/uL (0.0-0.2) Prothrombin Time 13.6 SEC (11.7-14.0) Prothromb Time International Ratio 1.1 (0.8-1.1) Sodium Level 139 mmol/L (136-145) Potassium Level 2.4 mmol/L (3.5-5.1) Chloride Level 98 mmol/L (98-107) Carbon Dioxide Level 28 mmol/L (21-32) Anion Gap 13 (6-14) Blood Urea Nitrogen 7 mg/dL (7-20) Creatinine 0.8 mg/dL (0.6-1.0) Estimated GFR (Cockcroft-Gault) 88.8 BUN/Creatinine Ratio 9 (6-20) Glucose Level 138 mg/dL (70-99) Calcium Level 9.1 mg/dL (8.5-10.1) Total Bilirubin 0.6 mg/dL (0.2-1.0) Aspartate Amino Transf (AST/SGOT) 27 U/L (15-37) Alanine Aminotransferase (ALT/SGPT) 14 U/L (14-59) Alkaline Phosphatase 150 U/L (46-116) Troponin I Quantitative < 0.017 ng/mL (0.000-0.055) < 0.017 ng/mL (0.000-0.055) EC-Ovu-B-Type Natriuretic Peptide 246 pg/mL (0-124) Total Protein 8.1 g/dL (6.4-8.2) Albumin 3.1 g/dL (3.4-5.0) Albumin/Globulin Ratio 0.6 (1.0-1.7) Lipase 81 U/L (73-393) Urine Collection Type Unknown Urine Color Elicia Urine Clarity Clear Urine pH 6.0 (<5.0-8.0) Urine Specific [place] 1.020 (1.000-1.030) Urine Protein Negative mg/dL (NEG-TRACE) Urine Glucose (UA) Negative mg/dL (NEG) Urine Ketones (Stick) Negative mg/dL (NEG) Urine Blood Negative (NEG) Urine Nitrite Negative (NEG) Urine Bilirubin Small (NEG) Urine Urobilinogen Dipstick 1.0 mg/dL (0.2 mg/dL) Urine Leukocyte Esterase Small (NEG) Urine RBC 0 /HPF (0-2) Urine WBC 5-10 /HPF (0-4) Urine Squamous Epithelial Cells Few /LPF Urine Amorphous Sediment Present /HPF Urine Bacteria 0 /HPF (0-FEW) Urine Mucus Slight /LPF Urine Opiates Screen Pos (NEG) Urine Methadone Screen Neg (NEG) Urine Barbiturates Neg (NEG) Urine Phencyclidine Screen Neg (NEG) Urine Amphetamine/Methamphetamine Neg (NEG) Urine Benzodiazepines Screen Pos (NEG) Urine Cocaine Screen Neg (NEG) Urine Cannabinoids Screen Pos (NEG) Urine Ethyl Alcohol Neg (NEG) Assessment and Plan Assessmemt and Plan Problems Medical Problems: (1) Chest pain Status: Acute (2) Hypokalemia Status: Acute Comment Review of Relevant I have reviewed the following items fred (where applicable) has been applied. Labs Laboratory Tests Test 09/23/19 18:33 09/23/19 19:55 09/24/19 05:25 White Blood Count 8.3 x10^3/uL (4.0-11.0) Red Blood Count 3.68 x10^6/uL (3.50-5.40) Hemoglobin 13.4 g/dL (12.0-15.5) Hematocrit 38.0 % (36.0-47.0) Mean Corpuscular Volume 103 fL (79-100) Mean Corpuscular Hemoglobin 36 pg (25-35) Mean Corpuscular Hemoglobin Concent 35 g/dL (31-37) Red Cell Distribution Width 13.7 % (11.5-14.5) Platelet Count 360 x10^3/uL (140-400) Neutrophils (%) (Auto) 65 % (31-73) Lymphocytes (%) (Auto) 18 % (24-48) Monocytes (%) (Auto) 15 % (0-9) Eosinophils (%) (Auto) 2 % (0-3) Basophils (%) (Auto) 1 % (0-3) Neutrophils # (Auto) 5.4 x10^3/uL (1.8-7.7) Lymphocytes # (Auto) 1.5 x10^3/uL (1.0-4.8) Monocytes # (Auto) 1.2 x10^3/uL (0.0-1.1) Eosinophils # (Auto) 0.1 x10^3/uL (0.0-0.7) Basophils # (Auto) 0.1 x10^3/uL (0.0-0.2) Prothrombin Time 13.6 SEC (11.7-14.0) Prothromb Time International Ratio 1.1 (0.8-1.1) Sodium Level 139 mmol/L (136-145) Potassium Level 2.4 mmol/L (3.5-5.1) Chloride Level 98 mmol/L (98-107) Carbon Dioxide Level 28 mmol/L (21-32) Anion Gap 13 (6-14) Blood Urea Nitrogen 7 mg/dL (7-20) Creatinine 0.8 mg/dL (0.6-1.0) Estimated GFR (Cockcroft-Gault) 88.8 BUN/Creatinine Ratio 9 (6-20) Glucose Level 138 mg/dL (70-99) Calcium Level 9.1 mg/dL (8.5-10.1) Total Bilirubin 0.6 mg/dL (0.2-1.0) Aspartate Amino Transf (AST/SGOT) 27 U/L (15-37) Alanine Aminotransferase (ALT/SGPT) 14 U/L (14-59) Alkaline Phosphatase 150 U/L (46-116) Troponin I Quantitative < 0.017 ng/mL (0.000-0.055) < 0.017 ng/mL (0.000-0.055) RM-Gsw-B-Type Natriuretic Peptide 246 pg/mL (0-124) Total Protein 8.1 g/dL (6.4-8.2) Albumin 3.1 g/dL (3.4-5.0) Albumin/Globulin Ratio 0.6 (1.0-1.7) Lipase 81 U/L (73-393) Urine Collection Type Unknown Urine Color Elicia Urine Clarity Clear Urine pH 6.0 (<5.0-8.0) Urine Specific [place] 1.020 (1.000-1.030) Urine Protein Negative mg/dL (NEG-TRACE) Urine Glucose (UA) Negative mg/dL (NEG) Urine Ketones (Stick) Negative mg/dL (NEG) Urine Blood Negative (NEG) Urine Nitrite Negative (NEG) Urine Bilirubin Small (NEG) Urine Urobilinogen Dipstick 1.0 mg/dL (0.2 mg/dL) Urine Leukocyte Esterase Small (NEG) Urine RBC 0 /HPF (0-2) Urine WBC 5-10 /HPF (0-4) Urine Squamous Epithelial Cells Few /LPF Urine Amorphous Sediment Present /HPF Urine Bacteria 0 /HPF (0-FEW) Urine Mucus Slight /LPF Urine Opiates Screen Pos (NEG) Urine Methadone Screen Neg (NEG) Urine Barbiturates Neg (NEG) Urine Phencyclidine Screen Neg (NEG) Urine Amphetamine/Methamphetamine Neg (NEG) Urine Benzodiazepines Screen Pos (NEG) Urine Cocaine Screen Neg (NEG) Urine Cannabinoids Screen Pos (NEG) Urine Ethyl Alcohol Neg (NEG) Laboratory Tests Test 09/23/19 18:33 09/23/19 19:55 09/24/19 05:25 White Blood Count 8.3 x10^3/uL (4.0-11.0) Red Blood Count 3.68 x10^6/uL (3.50-5.40) Hemoglobin 13.4 g/dL (12.0-15.5) Hematocrit 38.0 % (36.0-47.0) Mean Corpuscular Volume 103 fL (79-100) Mean Corpuscular Hemoglobin 36 pg (25-35) Mean Corpuscular Hemoglobin Concent 35 g/dL (31-37) Red Cell Distribution Width 13.7 % (11.5-14.5) Platelet Count 360 x10^3/uL (140-400) Neutrophils (%) (Auto) 65 % (31-73) Lymphocytes (%) (Auto) 18 % (24-48) Monocytes (%) (Auto) 15 % (0-9) Eosinophils (%) (Auto) 2 % (0-3) Basophils (%) (Auto) 1 % (0-3) Neutrophils # (Auto) 5.4 x10^3/uL (1.8-7.7) Lymphocytes # (Auto) 1.5 x10^3/uL (1.0-4.8) Monocytes # (Auto) 1.2 x10^3/uL (0.0-1.1) Eosinophils # (Auto) 0.1 x10^3/uL (0.0-0.7) Basophils # (Auto) 0.1 x10^3/uL (0.0-0.2) Prothrombin Time 13.6 SEC (11.7-14.0) Prothromb Time International Ratio 1.1 (0.8-1.1) Sodium Level 139 mmol/L (136-145) Potassium Level 2.4 mmol/L (3.5-5.1) Chloride Level 98 mmol/L (98-107) Carbon Dioxide Level 28 mmol/L (21-32) Anion Gap 13 (6-14) Blood Urea Nitrogen 7 mg/dL (7-20) Creatinine 0.8 mg/dL (0.6-1.0) Estimated GFR (Cockcroft-Gault) 88.8 BUN/Creatinine Ratio 9 (6-20) Glucose Level 138 mg/dL (70-99) Calcium Level 9.1 mg/dL (8.5-10.1) Total Bilirubin 0.6 mg/dL (0.2-1.0) Aspartate Amino Transf (AST/SGOT) 27 U/L (15-37) Alanine Aminotransferase (ALT/SGPT) 14 U/L (14-59) Alkaline Phosphatase 150 U/L (46-116) Troponin I Quantitative < 0.017 ng/mL (0.000-0.055) < 0.017 ng/mL (0.000-0.055) LP-Ckq-P-Type Natriuretic Peptide 246 pg/mL (0-124) Total Protein 8.1 g/dL (6.4-8.2) Albumin 3.1 g/dL (3.4-5.0) Albumin/Globulin Ratio 0.6 (1.0-1.7) Lipase 81 U/L (73-393) Urine Collection Type Unknown Urine Color Elicia Urine Clarity Clear Urine pH 6.0 (<5.0-8.0) Urine Specific [place] 1.020 (1.000-1.030) Urine Protein Negative mg/dL (NEG-TRACE) Urine Glucose (UA) Negative mg/dL (NEG) Urine Ketones (Stick) Negative mg/dL (NEG) Urine Blood Negative (NEG) Urine Nitrite Negative (NEG) Urine Bilirubin Small (NEG) Urine Urobilinogen Dipstick 1.0 mg/dL (0.2 mg/dL) Urine Leukocyte Esterase Small (NEG) Urine RBC 0 /HPF (0-2) Urine WBC 5-10 /HPF (0-4) Urine Squamous Epithelial Cells Few /LPF Urine Amorphous Sediment Present /HPF Urine Bacteria 0 /HPF (0-FEW) Urine Mucus Slight /LPF Urine Opiates Screen Pos (NEG) Urine Methadone Screen Neg (NEG) Urine Barbiturates Neg (NEG) Urine Phencyclidine Screen Neg (NEG) Urine Amphetamine/Methamphetamine Neg (NEG) Urine Benzodiazepines Screen Pos (NEG) Urine Cocaine Screen Neg (NEG) Urine Cannabinoids Screen Pos (NEG) Urine Ethyl Alcohol Neg (NEG) Medications Current Medications Potassium Chloride (Klor-Con) 60 meq 1X ONCE PO Last administered on 09/23/19at 19:26; Start 09/23/19 at 19:15; Stop 09/23/19 at 19:16; Status DC Ondansetron HCl (Zofran) 4 mg 1X ONCE IVP Last administered on 09/23/19 19:25; Start 09/23/19 at 19:15; Stop 09/23/19 at 19:16; Status DC Fentanyl Citrate (Fentanyl 2ml Vial) 50 mcg 1X ONCE IVP Last administered on 09/23/19 19:26; Start 09/23/19 at 19:15; Stop 09/23/19 at 19:16; Status DC Ondansetron HCl (Zofran) 4 mg PRN Q8HRS PRN IV NAUSEA/VOMITING; Start 09/23/19 at 19:30; Stop 09/24/19 at 19:29 Fentanyl Citrate (Fentanyl 2ml Vial) 50 mcg PRN Q1HR PRN IV PAIN Last administered on 09/24/19at 07:54; Start 09/23/19 at 19:30; Stop 09/24/19 at 19:29 Sodium Chloride 1,000 ml @ 1,000 mls/hr 1X ONCE IV Last administered on 09/23/19at 19:55; Start 09/23/19 at 19:45; Stop 09/23/19 at 20:44; Status DC Enoxaparin Sodium (Lovenox Per Pharmacy Prophylaxis Dosing) 1 each PRN DAILY PRN MC SEE COMMENTS; Start 09/23/19 at 21:00 Magnesium Sulfate 50 ml @ 25 mls/hr 1X ONCE IV Last administered on 09/23/19at 22:43; Start 09/23/19 at 21:00; Stop 09/23/19 at 22:59; Status DC Potassium Chloride (Klor-Con) 20 meq DAILY PO Last administered on 09/24/19at 08:43; Start 09/24/19 at 09:00 Potassium Chloride (Klor-Con) 20 meq 1X ONCE PO Last administered on 09/23/19at 22:10; Start 09/23/19 at 21:15; Stop 09/23/19 at 21:16; Status DC Nicotine (Nicoderm Cq 21mg) 1 patch PRN DAILY PRN TD SMOKING CESSATION; Start 09/23/19 at 21:15 Alprazolam (Xanax) 1 mg PRN TID PRN PO ANXIETY / AGITATION Last administered on 09/24/19at 07:54; Start 09/23/19 at 21:15 Amlodipine Besylate (Norvasc) 10 mg DAILY PO Last administered on 09/24/19at 08:43; Start 09/24/19 at 09:00 Throat Lozenges (Cepacol Sore Throat Lozenge) 1 ky PRN Q2HRS PRN PO SORE THROAT; Start 09/23/19 at 21:15 Carvedilol (Coreg) 6.25 mg BIDWMEALS PO ; Start 09/24/19 at 08:00 Cetirizine HCl (ZyrTEC) 10 mg DAILY PO Last administered on 09/24/19at 08:43; Start 09/24/19 at 09:00 Diphenhydramine HCl (Benadryl) 25 mg QHS PO ; Start 09/24/19 at 21:00 Enoxaparin Sodium (Lovenox 40mg Syringe) 40 mg DAILY SQ Last administered on 09/24/19at 08:44; Start 09/24/19 at 09:00 Oxycodone/ Acetaminophen (Percocet 5/325) 1 tab PRN Q4HRS PRN PO PAIN Last administered on 09/24/19at 08:43; Start 09/23/19 at 23:00 Morphine Sulfate (Morphine Ir) 15 mg BID PO Last administered on 09/24/19at 08:43; Start 09/24/19 at 09:00 Morphine Sulfate (Morphine Ir) 15 mg 1X ONCE PO Last administered on 09/24/19at 00:08; Start 09/23/19 at 23:00; Stop 09/23/19 at 23:07; Status DC Active Scripts Active Mucinex (Guaifenesin) 600 Mg Tablet.er 600 Mg PO BID Sore Throat Lozenge (Benzocaine/Menthol) 1 Each Lozenge 1 Ky PO PRN Q2HRS PRN Doxycycline Hyclate 100 Mg Tablet 100 Mg PO BID Morphine Sulfate Er (Morphine Sulfate) 15 Mg Tablet.er 15 Mg PO BID Xanax (Alprazolam) 1 Mg Tablet 1 Tab PO TID PRN Pantoprazole Sodium (Pantoprazole Sodium) 40 Mg Tablet.dr 40 Mg PO DAILYAC Reported Levaquin (Levofloxacin) 500 Mg Tablet 1 Tab PO DAILY Amlodipine Besylate 10 Mg Tablet 10 Mg PO DAILY Benadryl (Diphenhydramine Hcl) 25 Mg Capsule 1 Cap PO QHS Zyrtec (Cetirizine Hcl) 10 Mg Tablet 1 Tab PO DAILY Vitals/I & O Vital Sign - Last 24 Hours 09/23/19 09/23/19 09/23/19 09/23/19 18:01 18:55 19:25 19:26 Temp 98.5 98.5 Pulse 102 66 69 Resp 24 18 18 16 B/P (MAP) 141/98 (112) 120/76 (91) 122/73 (89) Pulse Ox 100 97 100 100 O2 Delivery Room Air Room Air Room Air Room Air 09/23/19 09/23/19 09/23/19 09/23/19 19:55 20:25 20:55 21:07 Pulse 69 72 69 67 Resp 18 18 18 18 B/P (MAP) 129/89 (102) 141/87 (105) 129/81 (97) 122/82 (95) Pulse Ox 98 98 99 100 O2 Delivery Room Air Room Air Room Air Room Air 09/23/19 09/23/19 09/23/19 09/23/19 21:47 22:04 22:15 22:18 Temp 98.3 97.7 98.3 97.7 Pulse 80 77 Resp 20 20 18 B/P (MAP) 166/82 (110) 143/90 (107) Pulse Ox 98 97 O2 Delivery Room Air Room Air Room Air Room Air 09/24/19 09/24/19 09/24/19 09/24/19 00:08 00:08 03:01 05:04 Temp 98.0 98.0 Pulse 65 Resp 18 18 18 22 B/P (MAP) 123/91 (102) Pulse Ox 96 O2 Delivery Room Air Room Air Room Air Room Air 09/24/19 09/24/19 09/24/19 09/24/19 07:00 07:54 08:00 08:24 Temp 97.6 97.6 Pulse 77 Resp 18 20 20 B/P (MAP) 111/51 (71) Pulse Ox 98 O2 Delivery Room Air Room Air Room Air Room Air 09/24/19 09/24/19 09/24/19 09/24/19 08:43 08:43 08:43 09:43 Pulse 77 Resp 20 20 18 B/P (MAP) 111/51 O2 Delivery Room Air Room Air Room Air 09/24/19 09:43 Resp 18 O2 Delivery Room Air Intake and Output 09/23/19 09/23/19 09/24/19 15:00 23:00 07:00 Intake Total 1000 ml 0 ml Balance 1000 ml 0 ml JANNETH CLEMONS MD Sep 24, 2019 10:46
--- NOTE | 2019-09-24 10:57 | EKG ---
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
[2019-09-24 11:00] VITALS: BP 99/64
[2019-09-24] MEDS ORDERED: methylPREDNISolone SOD SUCC PF 125 MG/2 ML VIAL. IV ONE (11:00)
[2019-09-24] MEDS: LIDOCAINE (700MG/PATCH) PATCH. TD SCH (11:43)
[2019-09-24] MEDS: IPRATRPIUM/ALBUTEROL 0.5/2.5MG 3 ML NEBU. NEB SCH ×3 (12:00→19:58)
[2019-09-24] MEDS ORDERED: MORPHINE SULFATE 4 MG/ML VIAL. IV ONE (12:30)
[2019-09-24] MEDS ORDERED: MORPHINE SULFATE 4 MG/ML VIAL. IM ONE (12:30)
[2019-09-24 14:40] VITALS: BP 120/57
[2019-09-24 19:10] VITALS: BP 119/73
[2019-09-24] MEDS: BUDESONIDE 0.5 MG/2 ML NEBU. NEB SCH (19:58)
[2019-09-24] MEDS: diphenhydrAMINE HCL 25 MG CAPSULE PO SCH (21:06)
[2019-09-24] MEDS: MONTELUKAST SODIUM 10 MG TABLET. PO SCH (21:06)
[2019-09-24 23:00] VITALS: BP 126/83
[2019-09-25] MEDS: oxyCODONE/APAP 5/325 1 TAB TABLET PO PRN ×5 (00:46→19:55)
[2019-09-25] MEDS: ALPRAZolam 1 MG TABLET PO PRN ×2 (00:46→08:44)
[2019-09-25 03:05] VITALS: BP 135/85
[2019-09-25 07:00] VITALS: BP 136/84
[2019-09-25] MEDS: BUDESONIDE 0.5 MG/2 ML NEBU. NEB SCH ×2 (07:34→20:02)
[2019-09-25] MEDS: IPRATRPIUM/ALBUTEROL 0.5/2.5MG 3 ML NEBU. NEB SCH ×4 (07:34→20:02)
[2019-09-25] MEDS: CARVEDILOL 6.25 MG TABLET. PO SCH ×2 (08:00→17:00)
--- NOTE | 2019-09-25 08:18 | PDOC ---
PROGRESS NOTES Chief Complaint Chief Complaint A/P: Chest pain - likely costochondritis vs GERD vs esophagitis from vomiting Shortness of breath - seems to be having an asthma exacerbation Abdominal pain with diarrhea and vomiting - possibly antibiotic related. will check c diff HTN: controlled Tobaccoism - counseled on cessation Prolonged QTc: likely inaccurate with noted u wave associated with hypokalemia Hypokalemia - due to GI symptoms Short GA interval - same as before, Potential underlying prexcitation but currently no associated arrhythmias or presyncopal events. Anxiety Drug seeking behavior - UDS + for opiates and benzos. Has chronic meds for pain Substance abuse - +marijuana but denies History of Present Illness History of Present Illness Ms Rey is a 58yo F w/ PMHX RA, HTN, allergies, asthma, anxiety, chronic back pain, anxiety admitted for worsening chest pressure that is generalized over the whole chest making her short of air. Pain has worsened over 2 days, and she is very anxious. marked stress, she has started smoking cigarettes again. She has been under a lot of stress and having a lot of anxiety due to a in the family. She states that she is had some nausea and vomiting. She states that she cannot take aspirin or ibuprofen or naproxen because it makes her very sick and makes her pass out. Patient states that she has a history of hypertension, RA, osteoporosis, anxiety. Patient is very tearful and anxious in the room. Patient rates her pressure chest pain a 9 out of 10 in a band-like distribution. CRP returned over 30. She still has the same pain complaints, she is asking to change her morphine to back to her long-acting. Placed on steroids for rheumatoid arthritis flare. Vitals Vitals Vital Signs Date Time Temp Pulse Resp B/P (MAP) Pulse Ox O2 Delivery O2 Flow Rate FiO2 09/25/19 07:35 95 Room Air 09/25/19 07:00 97.6 73 16 136/84 (101) 97.6 Physical Exam General: Alert, Oriented X3, Cooperative, No acute distress Heart: Regular rate (SR), Normal S1, Normal S2, No murmurs Lungs: Clear Abdomen: Soft, No tenderness Extremities: No cyanosis, No edema Skin: No breakdown, No significant lesion Assessment and Plan Assessmemt and Plan Problems Medical Problems: (1) Chest pain Status: Acute (2) Hypokalemia Status: Acute Comment Review of Relevant I have reviewed the following items fred (where applicable) has been applied. Labs Laboratory Tests Test 09/23/19 18:33 09/23/19 19:55 09/24/19 05:25 White Blood Count 8.3 x10^3/uL (4.0-11.0) Red Blood Count 3.68 x10^6/uL (3.50-5.40) Hemoglobin 13.4 g/dL (12.0-15.5) Hematocrit 38.0 % (36.0-47.0) Mean Corpuscular Volume 103 fL (79-100) Mean Corpuscular Hemoglobin 36 pg (25-35) Mean Corpuscular Hemoglobin Concent 35 g/dL (31-37) Red Cell Distribution Width 13.7 % (11.5-14.5) Platelet Count 360 x10^3/uL (140-400) Neutrophils (%) (Auto) 65 % (31-73) Lymphocytes (%) (Auto) 18 % (24-48) Monocytes (%) (Auto) 15 % (0-9) Eosinophils (%) (Auto) 2 % (0-3) Basophils (%) (Auto) 1 % (0-3) Neutrophils # (Auto) 5.4 x10^3/uL (1.8-7.7) Lymphocytes # (Auto) 1.5 x10^3/uL (1.0-4.8) Monocytes # (Auto) 1.2 x10^3/uL (0.0-1.1) Eosinophils # (Auto) 0.1 x10^3/uL (0.0-0.7) Basophils # (Auto) 0.1 x10^3/uL (0.0-0.2) Prothrombin Time 13.6 SEC (11.7-14.0) Prothromb Time International Ratio 1.1 (0.8-1.1) Sodium Level 139 mmol/L (136-145) 142 mmol/L (136-145) Potassium Level 2.4 mmol/L (3.5-5.1) 3.9 mmol/L (3.5-5.1) Chloride Level 98 mmol/L (98-107) 104 mmol/L (98-107) Carbon Dioxide Level 28 mmol/L (21-32) 28 mmol/L (21-32) Anion Gap 13 (6-14) 10 (6-14) Blood Urea Nitrogen 7 mg/dL (7-20) 4 mg/dL (7-20) Creatinine 0.8 mg/dL (0.6-1.0) 0.6 mg/dL (0.6-1.0) Estimated GFR (Cockcroft-Gault) 88.8 123.8 BUN/Creatinine Ratio 9 (6-20) Glucose Level 138 mg/dL (70-99) 91 mg/dL (70-99) Calcium Level 9.1 mg/dL (8.5-10.1) 8.7 mg/dL (8.5-10.1) Total Bilirubin 0.6 mg/dL (0.2-1.0) Aspartate Amino Transf (AST/SGOT) 27 U/L (15-37) Alanine Aminotransferase (ALT/SGPT) 14 U/L (14-59) Alkaline Phosphatase 150 U/L (46-116) Troponin I Quantitative < 0.017 ng/mL (0.000-0.055) < 0.017 ng/mL (0.000-0.055) FH-Nyv-R-Type Natriuretic Peptide 246 pg/mL (0-124) Total Protein 8.1 g/dL (6.4-8.2) Albumin 3.1 g/dL (3.4-5.0) Albumin/Globulin Ratio 0.6 (1.0-1.7) Lipase 81 U/L (73-393) Urine Collection Type Unknown Urine Color Elicia Urine Clarity Clear Urine pH 6.0 (<5.0-8.0) Urine Specific Phelps 1.020 (1.000-1.030) Urine Protein Negative mg/dL (NEG-TRACE) Urine Glucose (UA) Negative mg/dL (NEG) Urine Ketones (Stick) Negative mg/dL (NEG) Urine Blood Negative (NEG) Urine Nitrite Negative (NEG) Urine Bilirubin Small (NEG) Urine Urobilinogen Dipstick 1.0 mg/dL (0.2 mg/dL) Urine Leukocyte Esterase Small (NEG) Urine RBC 0 /HPF (0-2) Urine WBC 5-10 /HPF (0-4) Urine Squamous Epithelial Cells Few /LPF Urine Amorphous Sediment Present /HPF Urine Bacteria 0 /HPF (0-FEW) Urine Mucus Slight /LPF Urine Opiates Screen Pos (NEG) Urine Methadone Screen Neg (NEG) Urine Barbiturates Neg (NEG) Urine Phencyclidine Screen Neg (NEG) Urine Amphetamine/Methamphetamine Neg (NEG) Urine Benzodiazepines Screen Pos (NEG) Urine Cocaine Screen Neg (NEG) Urine Cannabinoids Screen Pos (NEG) Urine Ethyl Alcohol Neg (NEG) Magnesium Level 2.3 mg/dL (1.8-2.4) Creatine Kinase 52 U/L (26-192) Triglycerides Level 68 mg/dL (0-150) Cholesterol Level 148 mg/dL (0-200) LDL Cholesterol, Calculated 82 mg/dL (0-100) VLDL Cholesterol, Calculated 14 mg/dL (0-40) Non-HDL Cholesterol Calculated 96 mg/dL (0-129) HDL Cholesterol 52 mg/dL (40-60) Cholesterol/HDL Ratio 2.8 Thyroid Stimulating Hormone (TSH) 2.658 uIU/mL (0.358-3.74) Free Thyroxine 1.19 ng/dL (0.76-1.46) Medications Current Medications Potassium Chloride (Klor-Con) 60 meq 1X ONCE PO Last administered on 09/23/19 19:26; Start 09/23/19 at 19:15; Stop 09/23/19 at 19:16; Status DC Ondansetron HCl (Zofran) 4 mg 1X ONCE IVP Last administered on 09/23/19at 19:25; Start 09/23/19 at 19:15; Stop 09/23/19 at 19:16; Status DC Fentanyl Citrate (Fentanyl 2ml Vial) 50 mcg 1X ONCE IVP Last administered on 09/23/19 19:26; Start 09/23/19 at 19:15; Stop 09/23/19 at 19:16; Status DC Ondansetron HCl (Zofran) 4 mg PRN Q8HRS PRN IV NAUSEA/VOMITING; Start 09/23/19 at 19:30; Stop 09/24/19 at 19:29; Status DC Fentanyl Citrate (Fentanyl 2ml Vial) 50 mcg PRN Q1HR PRN IV PAIN Last administered on 09/24/19at 11:45; Start 09/23/19 at 19:30; Stop 09/24/19 at 19:29; Status DC Sodium Chloride 1,000 ml @ 1,000 mls/hr 1X ONCE IV Last administered on 6/8/20at 19:55; Start 09/23/19 at 19:45; Stop 09/23/19 at 20:44; Status DC Enoxaparin Sodium (Lovenox Per Pharmacy Prophylaxis Dosing) 1 each PRN DAILY PRN MC SEE COMMENTS; Start 09/23/19 at 21:00 Magnesium Sulfate 50 ml @ 25 mls/hr 1X ONCE IV Last administered on 09/23/19 22:43; Start 09/23/19 at 21:00; Stop 09/23/19 at 22:59; Status DC Potassium Chloride (Klor-Con) 20 meq DAILY PO Last administered on 09/24/19 08:43; Start 09/24/19 at 09:00 Potassium Chloride (Klor-Con) 20 meq 1X ONCE PO Last administered on 09/23/19at 22:10; Start 09/23/19 at 21:15; Stop 09/23/19 at 21:16; Status DC Nicotine (Nicoderm Cq 21mg) 1 patch PRN DAILY PRN TD SMOKING CESSATION; Start 09/23/19 at 21:15 Alprazolam (Xanax) 1 mg PRN TID PRN PO ANXIETY / AGITATION Last administered on 09/25/19at 00:46; Start 09/23/19 at 21:15 Amlodipine Besylate (Norvasc) 10 mg DAILY PO Last administered on 09/24/19at 08:43; Start 09/24/19 at 09:00 Throat Lozenges (Cepacol Sore Throat Lozenge) 1 ky PRN Q2HRS PRN PO SORE THROAT; Start 09/23/19 at 21:15 Carvedilol (Coreg) 6.25 mg BIDWMEALS PO ; Start 09/24/19 at 08:00 Cetirizine HCl (ZyrTEC) 10 mg DAILY PO Last administered on 09/24/19 08:43; Start 09/24/19 at 09:00 Diphenhydramine HCl (Benadryl) 25 mg QHS PO Last administered on 09/24/19at 21:06; Start 09/24/19 at 21:00 Enoxaparin Sodium (Lovenox 40mg Syringe) 40 mg DAILY SQ Last administered on 09/24/19at 08:44; Start 09/24/19 at 09:00 Oxycodone/ Acetaminophen (Percocet 5/325) 1 tab PRN Q4HRS PRN PO PAIN Last administered on 09/25/19at 06:35; Start 09/23/19 at 23:00 Morphine Sulfate (Morphine Ir) 15 mg BID PO Last administered on 09/24/19at 21:06; Start 09/24/19 at 09:00 Morphine Sulfate (Morphine Ir) 15 mg 1X ONCE PO Last administered on 09/24/19at 00:08; Start 09/23/19 at 23:00; Stop 09/23/19 at 23:07; Status DC Pantoprazole Sodium (Protonix) 40 mg DAILYAC PO ; Start 09/25/19 at 07:30 Albuterol/ Ipratropium (Duoneb) 3 ml RTQID NEB Last administered on 09/25/19at 07:34; Start 09/24/19 at 12:00 Budesonide (Pulmicort) 0.5 mg RTBID NEB Last administered on 09/25/19at 07:34; Start 09/24/19 at 20:00 Montelukast Sodium (Singulair) 10 mg QHS PO Last administered on 09/24/19at 21:06; Start 09/24/19 at 21:00 Albuterol Sulfate (Ventolin Neb Soln) 2.5 mg PRN Q4HRS PRN NEB SHORTNESS OF BREATH; Start 09/24/19 at 10:45 Lidocaine (Lidoderm) 2 patch DAILY TD Last administered on 09/24/19at 11:43; Start 09/24/19 at 11:00 Methylprednisolone Sodium Succinate (SOLU-Medrol 125MG VIAL) 125 mg 1X ONCE IV Last administered on 09/24/19at 11:43; Start 09/24/19 at 11:00; Stop 09/24/19 at 11:01; Status DC Morphine Sulfate (Morphine Sulfate) 4 mg 1X ONCE IM ; Start 09/24/19 at 12:30; Stop 09/24/19 at 12:31; Status Cancel Morphine Sulfate (Morphine Sulfate) 4 mg 1X ONCE IV Last administered on 09/24/19at 13:55; Start 09/24/19 at 12:30; Stop 09/24/19 at 12:31; Status DC Active Scripts Active Mucinex (Guaifenesin) 600 Mg Tablet.er 600 Mg PO BID Sore Throat Lozenge (Benzocaine/Menthol) 1 Each Lozenge 1 Ky PO PRN Q2HRS PRN Doxycycline Hyclate 100 Mg Tablet 100 Mg PO BID Morphine Sulfate Er (Morphine Sulfate) 15 Mg Tablet.er 15 Mg PO BID Xanax (Alprazolam) 1 Mg Tablet 1 Tab PO TID PRN Pantoprazole Sodium (Pantoprazole Sodium) 40 Mg Tablet.dr 40 Mg PO DAILYAC Reported Levaquin (Levofloxacin) 500 Mg Tablet 1 Tab PO DAILY Amlodipine Besylate 10 Mg Tablet 10 Mg PO DAILY Benadryl (Diphenhydramine Hcl) 25 Mg Capsule 1 Cap PO QHS Zyrtec (Cetirizine Hcl) 10 Mg Tablet 1 Tab PO DAILY Vitals/I & O Vital Sign - Last 24 Hours 09/24/19 09/24/19 09/24/19 09/24/19 08:24 08:43 08:43 08:43 Pulse 77 Resp 20 20 20 B/P (MAP) 111/51 O2 Delivery Room Air Room Air Room Air 09/24/19 09/24/19 09/24/19 09/24/19 09:43 09:43 11:00 11:43 Temp 98.1 98.1 Pulse 74 Resp 18 18 20 B/P (MAP) 99/64 (76) Pulse Ox 98 98 O2 Delivery Room Air Room Air Room Air Room Air 09/24/19 09/24/19 09/24/19 09/24/19 11:45 12:15 13:55 14:25 Resp 20 18 20 16 O2 Delivery Room Air Room Air Room Air Room Air 09/24/19 09/24/19 09/24/19 09/24/19 14:40 15:40 17:30 18:30 Temp 98.4 98.4 Pulse 76 Resp 16 20 20 B/P (MAP) 120/57 (78) Pulse Ox 94 95 O2 Delivery Room Air Room Air Room Air Room Air 09/24/19 09/24/19 09/24/19 09/24/19 19:10 19:45 19:59 21:06 Temp 97.7 97.7 Pulse 78 Resp 18 16 B/P (MAP) 119/73 (88) Pulse Ox 96 95 95 O2 Delivery Room Air Room Air Room Air Room Air 6/01/0409/24/19 09/25/19 09/25/19 22:06 23:00 00:46 01:46 Temp 97.8 97.8 Pulse 88 Resp 18 16 B/P (MAP) 126/83 (97) Pulse Ox 98 99 99 98 O2 Delivery Room Air Room Air Room Air Room Air 09/25/19 09/25/19 09/25/19 09/25/19 03:05 06:35 07:00 07:35 Temp 97.9 97.6 97.9 97.6 Pulse 67 73 Resp 18 18 16 B/P (MAP) 135/85 (102) 136/84 (101) Pulse Ox 98 98 99 95 O2 Delivery Room Air Room Air Room Air Room Air Intake and Output 09/24/19 09/24/19 09/25/19 15:00 23:00 07:00 Intake Total 120 ml 220 ml 200 ml Balance 120 ml 220 ml 200 ml JANNETH CLEMONS MD Sep 25, 2019 08:18
[2019-09-25] MEDS: LIDOCAINE (700MG/PATCH) PATCH. TD SCH (08:42)
[2019-09-25] MEDS: MORPHINE IR 15 MG TABLET PO SCH (08:43)
[2019-09-25] MEDS: ENOXAPARIN 40 MG/0.4 ML SYRINGE. SQ SCH (08:43)
[2019-09-25] MEDS: predniSONE 20 MG TABLET PO SCH (08:43)
[2019-09-25] MEDS: amLODIPine BESYLATE 10 MG TABLET PO SCH (08:43)
[2019-09-25] MEDS: CETIRIZINE HCL 10 MG TABLET. PO SCH (08:44)
[2019-09-25] MEDS: POTASSIUM CHLORIDE 20 MEQ TABLET.ER. PO SCH (08:44)
[2019-09-25] MEDS: PANTOPRAZOLE 40 MG TABLET.DR. PO SCH (08:44)
[2019-09-25 11:00] VITALS: BP 121/70
[2019-09-25] MEDS: MORPHINE ER 15 MG TABLET.ER PO SCH ×2 (11:24→21:25)
--- NOTE | 2019-09-25 11:47 | PDOC ---
RICKIE LOUIE HISTORIC PRESERVATIONIST 09/25/19 1147: CARDIO Progress Notes Date and Time Date of Service 09/25/2019 Time of Evaluation 0910 Subjective Subjective: No shortness of breath, No Palpitations, Other (still complaining of body aches) Vitals Vitals Vital Signs Date Time Temp Pulse Resp B/P (MAP) Pulse Ox O2 Delivery O2 Flow Rate FiO2 09/25/19 11:38 95 Room Air 09/25/19 11:27 20 09/25/19 11:00 98.0 72 121/70 (87) 98.0 Weight Weight [ ] Input and Output Intake and Output Intake and Output 09/25/19 07:00 Intake Total 540 ml Balance 540 ml Intake Oral 540 ml # Voids 7 # Bowel Movements 1 Laboratory Labs Laboratory Tests Test 09/25/19 05:25 C-Reactive Protein, Quantitative 36.8 mg/L (0-3.3) Microbiology Micro Microbiology 09/23/19 Urine Culture - Final, Complete Physical Exam HEENT: Neck Supple W Full Motion Chest: Symmetric LUNGS: Clear to Auscultation Heart: RRR (SR) Abdomen: Soft N/T Extremities: No Calf Tenderness Neurology: alert, oriented, follow commands Assessment Assessment 1. Atypical CP: doubt ACS. appears to be MSK 2. Abdominal pain with diarrhea and vomiting: defer to PCP. Recent ABx last week 3. HTN: controlled 4. Tobaccoism 5. Prolonged QTc: likely inaccurate with noted u wave associated with hy pokalemia. Repeat EKG QTc better at 413 after K replacement 6. Hypokalemia: due to GI symptoms, better 7. Short AK interval: same as before, Potential underlying prexcitation. Noted with intermittent asymptomatic episodes of bradycardia in the 40s and PAT 8. Anxiety 9. Drug seeking behavior?: out of percocet. UDS + for opiates and benzos 10. Substance abuse: +marijuana but denies Recommendations 1. TTE today. Moving forward pt will need MCOT to rule out any significant arrhythmias. Discussed with pt and encouraged to follow up in office. MCOT will be considered if pt does follow up in office. 2. Smoking cessation. Continue current BP regimen 3. If TTE is unremarkable then may DC per cardiac standpoint. Justicifation of Admission Dx: Justifications for Admission: Justification of Admission Dx: Yes Angina: New-Onset (with hypokalemia) MCSWEYN,BLANE J MD 09/25/19 1633: CARDIO Progress Notes Assessment Assessment Patient seen and examined I agree with our nurse practitioners assessment and plan. Atypical CP: doubt ACS. appears to be MSK. Echo pending. Abdominal pain with diarrhea and vomiting: defer to PCP. Recent ABx last week HTN: controlled Prolonged QTc: likely inaccurate with noted u wave associated with hypokalemia. Repeat EKG QTc better at 413 after K replacement Hypokalemia: due to GI symptoms, better Short AK interval: same as before, Potential underlying prexcitation. Noted with intermittent asymptomatic episodes of bradycardia in the 40s and PAT RICKIE LOUIE APRN Sep 25, 2019 11:47 BLANE EDGAR MD Sep 25, 2019 16:33
--- NOTE | 2019-09-25 13:20 | CARD ---
MR#: [id number] Date of Study: 09/25/2019 Ordering Physician: RICKIE LOUIE, Referring Physician: RICKIE LOUIE, Tech: Nataly Iqbal [facility] APPROVED REPORT EXAM: Two-dimensional and M-mode echocardiogram with Doppler and color Doppler. Other Information Quality : Good INDICATION Abnormal ECG 2D DIMENSIONS RVDd2.3 (2.9-3.5cm)Left Atrium(2D)2.8 (1.6-4.0cm) IVSd0.9 (0.7-1.1cm)Aortic Root(2D)2.6 (2.0-3.7cm) LVDd4.7 (3.9-5.9cm)LVOT Diameter1.9 (1.8-2.4cm) PWd0.8 (0.7-1.1cm)LVDs2.7 (2.5-4.0cm) FS (%) 30.0 %SV77.2 ml LVEF(%)60.0 (>50%) Aortic Valve AoV Peak Abrahan.146.7cm/sAoV VTI26.1cm AO Peak GR.8.6mmHgLVOT Peak Abrahan.107.6cm/s LVOT VTI 21.45cmAO Mean GR.5mmHg JERROD (VMAX)2.41af5FGC (VTI)2.43cm2 Mitral Valve MV E Syodqoal67.8cm/sMV DECEL [id number] MV A Fengidzo25.9cm/sMV QAN18mo E/A Ratio1.2MVA (PHT)4.69cm2 TDI E/Lateral E'6.5E/Medial E'9.6 Tricuspid Valve TR P. [id number]/sRAP [id number] TR Peak Gr.06vyZlZLUU60smAa Pulmonary Vein S1 Sbsetwmd17.3cm/sD2 Qqufvzxm64.3cm/s LEFT VENTRICLE The left ventricle is normal size. There is normal left ventricular wall thickness. The left ventricu lar systolic function is normal. The Ejection Fraction is 55-60%. There is normal LV segmental wall m otion. The left ventricular diastolic function and filling is normal for age. RIGHT VENTRICLE The right ventricle is normal size. The right ventricular systolic function is normal. ATRIA The left atrium size is normal. The right atrium size is normal. The interatrial septum is intact wit h no evidence for an atrial septal defect or patent foramen ovale as noted on 2-D or Doppler imaging. AORTIC VALVE The aortic valve is mildly thickened but opens well. Doppler and Color Flow revealed no significant a ortic regurgitation. There is no significant aortic valvular stenosis. MITRAL VALVE The mitral valve is normal in structure and function. There is no evidence of mitral valve prolapse. There is no mitral valve stenosis. Doppler and Color-flow revealed trace to mild mitral regurgitation . TRICUSPID VALVE The tricuspid valve is normal in structure and function. Doppler and Color Flow revealed mild tricusp id regurgitation. There is mild pulmonary hypertension. The PA pressure was estimated at 36 mmHg. The re is no tricuspid valve stenosis. PULMONIC VALVE The pulmonary valve is normal in structure and function. Doppler and Color Flow revealed trace pulmon ic valvular regurgitation. There is no pulmonic valvular stenosis. GREAT VESSELS The aortic root is normal in size. The ascending aorta is normal in size. The IVC is normal in size a nd collapses >50% with inspiration. PERICARDIAL EFFUSION There is no evidence of significant pericardial effusion. Critical Notification Critical Value: No <Conclusion> The left ventricular systolic function is normal. The Ejection Fraction is 55-60%. There is normal LV segmental wall motion. Mild tricuspid regurgitation. There is mild pulmonary hypertension. The PA pressure was estimated at 36 mmHg. There is no evidence of significant pericardial effusion. Signed by : León Guerrero, Electronically Approved : 09/25/2019 13:19:38
[2019-09-25 15:00] VITALS: BP 114/76
[2019-09-25 19:00] VITALS: BP 140/81
[2019-09-25] MEDS: diphenhydrAMINE HCL 25 MG CAPSULE PO SCH (21:25)
[2019-09-25] MEDS: MONTELUKAST SODIUM 10 MG TABLET. PO SCH (21:25)
[2019-09-25 22:43] VITALS: BP 126/72
[2019-09-26 02:46] VITALS: BP 131/91
[2019-09-26] MEDS: oxyCODONE/APAP 5/325 1 TAB TABLET PO PRN ×3 (02:56→15:34)
[2019-09-26] MEDS: BUDESONIDE 0.5 MG/2 ML NEBU. NEB SCH (07:16)
[2019-09-26] MEDS: IPRATRPIUM/ALBUTEROL 0.5/2.5MG 3 ML NEBU. NEB SCH ×2 (07:16→11:56)
[2019-09-26 07:19] VITALS: BP 141/84
[2019-09-26] MEDS: ENOXAPARIN 40 MG/0.4 ML SYRINGE. SQ SCH ×2 (08:18→09:00)
[2019-09-26] MEDS: amLODIPine BESYLATE 10 MG TABLET PO SCH (08:19)
[2019-09-26] MEDS: MORPHINE ER 15 MG TABLET.ER PO SCH (08:19)
[2019-09-26] MEDS: POTASSIUM CHLORIDE 20 MEQ TABLET.ER. PO SCH (08:19)
[2019-09-26] MEDS: LIDOCAINE (700MG/PATCH) PATCH. TD SCH (08:19)
[2019-09-26] MEDS: CETIRIZINE HCL 10 MG TABLET. PO SCH (08:20)
[2019-09-26] MEDS: PANTOPRAZOLE 40 MG TABLET.DR. PO SCH (08:20)
--- NOTE | 2019-09-26 08:22 | PDOC ---
PROGRESS NOTES Chief Complaint Chief Complaint A/P: Chest pain - likely costochondritis vs GERD vs esophagitis from vomiting Shortness of breath - seems to be having an asthma exacerbation Abdominal pain with diarrhea and vomiting - possibly antibiotic related. will check c diff HTN: controlled Tobaccoism - counseled on cessation Prolonged QTc: likely inaccurate with noted u wave associated with hypokalemia Hypokalemia - due to GI symptoms Short MI interval - same as before, Potential underlying prexcitation but currently no associated arrhythmias or presyncopal events. Anxiety Drug seeking behavior - UDS + for opiates and benzos. Has chronic meds for pain Substance abuse - +marijuana but denies History of Present Illness History of Present Illness Ms Rey is a 58yo F w/ PMHX RA, HTN, allergies, asthma, anxiety, chronic back pain, anxiety admitted for worsening chest pressure that is generalized over the whole chest making her short of air. Pain has worsened over 2 days, and she is very anxious. marked stress, she has started smoking cigarettes again. She has been under a lot of stress and having a lot of anxiety due to a in the family. She states that she is had some nausea and vomiting. She states that she cannot take aspirin or ibuprofen or naproxen because it makes her very sick and makes her pass out. Patient states that she has a history of hypertension, RA, osteoporosis, anxiety. Patient is very tearful and anxious in the room. Patient rates her pressure chest pain a 9 out of 10 in a band-like distribution. 09/24: CRP returned over 30. She still has the same pain complaints, she is asking to change her morphine to back to her long-acting. Placed on steroids for rheumatoid arthritis flare. ECHO: The left ventricular systolic function is normal. The Ejection Fraction is 55-60%. There is normal LV segmental wall motion. Mild tricuspid regurgitation. There is mild pulmonary hypertension. The PA pressure was estimated at 36 mmHg. There is no evidence of significant pericardial effusion. Feeling improved. She is tearful about having pain medications notes she is been placed on them for her rheumatoid arthritis, and that when she was younger in the 1980s she did use opioids and had to go on to methadone while she was . Given though her physical symptoms are better she is worried about opioid withdrawal, I have counseled her on continuing pain treatment for her rheumatoid arthritis flare for the next 6 days, and then a Suboxone taper after that. For diarrhea she may take Imodium 2 to 4 mg every 2 hours as needed, for cough anxiety or chills she may take dextromethorphan 10 mils every 4 hours as needed. Should be discharged with home health. Vitals Vitals Vital Signs Date Time Temp Pulse Resp B/P (MAP) Pulse Ox O2 Delivery O2 Flow Rate FiO2 09/26/19 07:19 98.0 71 18 141/84 (103) 97 Room Air 98.0 Physical Exam General: Alert, Oriented X3, Cooperative, No acute distress Heart: Regular rate (SR), Normal S1, Normal S2, No murmurs Lungs: Clear Abdomen: Soft, No tenderness Extremities: No cyanosis, No edema Skin: No breakdown, No significant lesion Assessment and Plan Assessmemt and Plan Problems Medical Problems: (1) Chest pain Status: Acute (2) Hypokalemia Status: Acute Comment Review of Relevant I have reviewed the following items fred (where applicable) has been applied. Labs Laboratory Tests Test 09/25/19 05:25 C-Reactive Protein, Quantitative 36.8 mg/L (0-3.3) Microbiology 09/23/19 Urine Culture - Final, Complete Medications Current Medications Potassium Chloride (Klor-Con) 60 meq 1X ONCE PO Last administered on 09/23/19at 19:26; Start 09/23/19 at 19:15; Stop 09/23/19 at 19:16; Status DC Ondansetron HCl (Zofran) 4 mg 1X ONCE IVP Last administered on 09/23/19at 19:25; Start 09/23/19 at 19:15; Stop 09/23/19 at 19:16; Status DC Fentanyl Citrate (Fentanyl 2ml Vial) 50 mcg 1X ONCE IVP Last administered on 09/23/19at 19:26; Start 09/23/19 at 19:15; Stop 09/23/19 at 19:16; Status DC Ondansetron HCl (Zofran) 4 mg PRN Q8HRS PRN IV NAUSEA/VOMITING; Start 09/23/19 at 19:30; Stop 09/24/19 at 19:29; Status DC Fentanyl Citrate (Fentanyl 2ml Vial) 50 mcg PRN Q1HR PRN IV PAIN Last administered on 09/24/19at 11:45; Start 09/23/19 at 19:30; Stop 09/24/19 at 19:29; Status DC Sodium Chloride 1,000 ml @ 1,000 mls/hr 1X ONCE IV Last administered on 09/23/19at 19:55; Start 09/23/19 at 19:45; Stop 09/23/19 at 20:44; Status DC Enoxaparin Sodium (Lovenox Per Pharmacy Prophylaxis Dosing) 1 each PRN DAILY PRN MC SEE COMMENTS; Start 09/23/19 at 21:00 Magnesium Sulfate 50 ml @ 25 mls/hr 1X ONCE IV Last administered on 09/23/19at 22:43; Start 09/23/19 at 21:00; Stop 09/23/19 at 22:59; Status DC Potassium Chloride (Klor-Con) 20 meq DAILY PO Last administered on 09/25/19at 08:44; Start 09/24/19 at 09:00 Potassium Chloride (Klor-Con) 20 meq 1X ONCE PO Last administered on 09/23/19at 22:10; Start 09/23/19 at 21:15; Stop 09/23/19 at 21:16; Status DC Nicotine (Nicoderm Cq 21mg) 1 patch PRN DAILY PRN TD SMOKING CESSATION; Start 09/23/19 at 21:15 Alprazolam (Xanax) 1 mg PRN TID PRN PO ANXIETY / AGITATION Last administered on 09/25/19at 08:44; Start 09/23/19 at 21:15 Amlodipine Besylate (Norvasc) 10 mg DAILY PO Last administered on 09/25/19at 08:43; Start 09/24/19 at 09:00 Throat Lozenges (Cepacol Sore Throat Lozenge) 1 ky PRN Q2HRS PRN PO SORE THROAT; Start 09/23/19 at 21:15 Carvedilol (Coreg) 6.25 mg BIDWMEALS PO ; Start 09/24/19 at 08:00; Stop 09/25/19 at 17:06; Status DC Cetirizine HCl (ZyrTEC) 10 mg DAILY PO Last administered on 09/25/19at 08:44; Start 09/24/19 at 09:00 Diphenhydramine HCl (Benadryl) 25 mg QHS PO Last administered on 09/25/19at 21:25; Start 09/24/19 at 21:00 Enoxaparin Sodium (Lovenox 40mg Syringe) 40 mg DAILY SQ Last administered on 09/25/19at 08:43; Start 09/24/19 at 09:00 Oxycodone/ Acetaminophen (Percocet 5/325) 1 tab PRN Q4HRS PRN PO PAIN Last administered on 09/26/19at 02:56; Start 09/23/19 at 23:00 Morphine Sulfate (Morphine Ir) 15 mg BID PO Last administered on 09/25/19at 08:43; Start 09/24/19 at 09:00; Stop 09/25/19 at 11:15; Status DC Morphine Sulfate (Morphine Ir) 15 mg 1X ONCE PO Last administered on 09/24/19at 00:08; Start 09/23/19 at 23:00; Stop 09/23/19 at 23:07; Status DC Pantoprazole Sodium (Protonix) 40 mg DAILYAC PO Last administered on 09/25/19at 08:44; Start 09/25/19 at 07:30 Albuterol/ Ipratropium (Duoneb) 3 ml RTQID NEB Last administered on 09/26/19at 07:16; Start 09/24/19 at 12:00 Budesonide (Pulmicort) 0.5 mg RTBID NEB Last administered on 09/26/19at 07:16; Start 09/24/19 at 20:00 Montelukast Sodium (Singulair) 10 mg QHS PO Last administered on 09/25/19at 21:25; Start 09/24/19 at 21:00 Albuterol Sulfate (Ventolin Neb Soln) 2.5 mg PRN Q4HRS PRN NEB SHORTNESS OF BREATH; Start 09/24/19 at 10:45 Lidocaine (Lidoderm) 2 patch DAILY TD Last administered on 09/25/19at 08:42; Start 09/24/19 at 11:00 Methylprednisolone Sodium Succinate (SOLU-Medrol 125MG VIAL) 125 mg 1X ONCE IV Last administered on 09/24/19at 11:43; Start 09/24/19 at 11:00; Stop 09/24/19 at 11:01; Status DC Morphine Sulfate (Morphine Sulfate) 4 mg 1X ONCE IM ; Start 09/24/19 at 12:30; Stop 09/24/19 at 12:31; Status Cancel Morphine Sulfate (Morphine Sulfate) 4 mg 1X ONCE IV Last administered on 09/24/19at 13:55; Start 09/24/19 at 12:30; Stop 09/24/19 at 12:31; Status DC Prednisone (Prednisone) 20 mg DAILY PO Last administered on 09/25/19at 08:43; Start 09/25/19 at 09:00 Morphine Sulfate (Ms Contin) 15 mg BID PO Last administered on 09/25/19at 21:25; Start 09/25/19 at 11:15 Active Scripts Active Mucinex (Guaifenesin) 600 Mg Tablet.er 600 Mg PO BID Sore Throat Lozenge (Benzocaine/Menthol) 1 Each Lozenge 1 Ky PO PRN Q2HRS PRN Doxycycline Hyclate 100 Mg Tablet 100 Mg PO BID Morphine Sulfate Er (Morphine Sulfate) 15 Mg Tablet.er 15 Mg PO BID Xanax (Alprazolam) 1 Mg Tablet 1 Tab PO TID PRN Pantoprazole Sodium (Pantoprazole Sodium) 40 Mg Tablet.dr 40 Mg PO DAILYAC Reported Levaquin (Levofloxacin) 500 Mg Tablet 1 Tab PO DAILY Amlodipine Besylate 10 Mg Tablet 10 Mg PO DAILY Benadryl (Diphenhydramine Hcl) 25 Mg Capsule 1 Cap PO QHS Zyrtec (Cetirizine Hcl) 10 Mg Tablet 1 Tab PO DAILY Vitals/I & O Vital Sign - Last 24 Hours 09/25/19 09/25/19 09/25/19 09/25/19 08:43 08:43 09:43 11:00 Temp 98.0 98.0 Pulse 73 72 Resp 20 20 18 B/P (MAP) 136/84 121/70 (87) Pulse Ox 98 O2 Delivery Room Air Room Air Room Air 09/25/19 09/25/19 09/25/19 09/25/19 11:24 11:27 11:38 12:27 Resp 20 20 18 Pulse Ox 95 O2 Delivery Room Air Room Air Room Air Room Air 09/25/19 09/25/19 09/25/19 09/25/19 15:00 15:10 15:24 15:38 Temp 98.3 98.3 Pulse 81 Resp 16 18 20 B/P (MAP) 114/76 (89) Pulse Ox 100 95 O2 Delivery Room Air Room Air Room Air Room Air 09/25/19 09/25/19 09/25/19 09/25/19 16:10 19:00 19:55 20:04 Temp 98.4 98.4 Pulse 88 Resp 16 18 16 B/P (MAP) 140/81 (100) Pulse Ox 96 95 100 O2 Delivery Room Air Room Air Room Air Room Air 09/25/19 09/25/19 09/25/19 09/25/19 20:33 20:55 21:25 22:43 Temp 98.3 98.3 Pulse 74 Resp 16 16 19 B/P (MAP) 126/72 (90) Pulse Ox 97 100 97 O2 Delivery Room Air Room Air Room Air Room Air 09/26/19 09/26/19 09/26/19 09/26/19 01:25 02:46 02:56 03:56 Temp 98.3 98.3 Pulse 64 Resp 16 17 16 16 B/P (MAP) 131/91 (104) Pulse Ox 97 96 96 96 O2 Delivery Room Air Room Air Room Air Room Air 09/26/19 09/26/19 07:16 07:19 Temp 98.0 98.0 Pulse 71 Resp 18 B/P (MAP) 141/84 (103) Pulse Ox 99 97 O2 Delivery Room Air Room Air Intake and Output 09/25/19 09/25/19 09/26/19 15:00 23:00 07:00 Intake Total 240 ml 680 ml 0 ml Balance 240 ml 680 ml 0 ml JANNETH CLEMONS MD Sep 26, 2019 08:22
[2019-09-26] MEDS: predniSONE 20 MG TABLET PO SCH (08:24)
[2019-09-26 10:54] VITALS: BP 111/79
[2019-09-26] MEDS ORDERED: OXYC1TAB15 PO (11:23)
[2019-09-26] MEDS ORDERED: PRED20TA PO (11:23)
--- NOTE | 2019-09-26 11:26 | SNU/HH DC ---
DISCHARGE WITH HOME HEALTH DISCHARGE INFORMATION: Discharge Date: Sep 26, 2019 Final Diagnosis: Problems Medical Problems: (1) Chest pain Status: Acute (2) Hypokalemia Status: Acute Condition on Discharge: Stable CODE STATUS: Code Status: Full HOME HEALTH: Face to Face: I certify this patient is under my care and that I, or a nurse practitioner or physician's topographical field assistant working with me, had a face to face encounter that meets the physician face to face encounter requirements with this patient on 09/26/2019. 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 Marah Kearney 10/22/2019 1400 Follow up with: Dr Adriano Doe 10/24/2019 1400 CERTIFICATION STATEMENT: Certification Statement: Certification Statement: Based on the above finding, I certify that this patient is confined to the home and needs intermittent long term care, physical therapy and/or speech therapy, or continues to need occupational therapy.~ This patient is under my care, and I have initiated the establishment of the plan of care.~ This patient will be followed by myself or a community physician who will periodically review the plan of care. Home Meds Active Scripts Montelukast Sodium (MONTELUKAST SODIUM TABLET ) 10 Mg Tablet, 10 MG PO QHS for Allergies for 30 Days, #30 TAB 5 Refills Prov:JANNETH CLEMONS MD 09/26/19 Potassium Chloride (KLOR-CON M20) 20 Meq Tab.er.prt, 20 MEQ PO DAILY for Hypokalemia for 30 Days, #30 TAB.SR Prov:JANNETH CLEMONS MD 09/26/19 Prednisone (PREDNISONE) 20 Mg Tablet, 20 MG PO DAILY for RA flare for 10 Days, #10 TAB Prov:JANNETH CLEMONS MD 09/26/19 Oxycodone/Apap 5-325 (PERCOCET 5-325 MG TABLET ) 1 Each Tablet, 1 TAB PO PRN Q6HRS PRN for PAIN for 6 Days, #16 TAB Prov:JANNETH CLEMONS MD 09/26/19 Guaifenesin (MUCINEX) 600 Mg Tablet.er, 600 MG PO BID for cough, #14 TAB.SR Prov:DENVER CAVAZOS MD 12/21/18 Benzocaine/Menthol (SORE THROAT LOZENGE) 1 Each Lozenge, 1 FATUMA PO PRN Q2HRS PRN for SORE THROAT, #30 LOZENGE Prov:DENVER CAVAZOS MD 12/21/18 Doxycycline Hyclate (DOXYCYCLINE HYCLATE) 100 Mg Tablet, 100 MG PO BID for bronchitis, #20 TAB Prov:DENVER CAVAZOS MD 12/21/18 Pantoprazole Sodium (PANTOPRAZOLE SODIUM ) 40 Mg Tablet.dr, 40 MG PO DAILYAC for GERD, #30 TAB.SR 1 Refill Prov:DENVER CAVAZOS MD 12/21/18 Reported Medications Amlodipine Besylate (AMLODIPINE BESYLATE) 10 Mg Tablet, 10 MG PO DAILY, TAB 08/10/17 Diphenhydramine Hcl (BENADRYL) 25 Mg Capsule, 1 CAP PO QHS, #30 CAP 1 Refill 09/11/15 Cetirizine Hcl (ZYRTEC) 10 Mg Tablet, 1 TAB PO DAILY, #30 TAB 2 Refills 09/11/15 Discontinued Reported Medications Levofloxacin (LEVAQUIN) 500 Mg Tablet, 1 TAB PO DAILY for INFECTION, #6 TAB 12/21/18 Discontinued Scripts Morphine Sulfate (MORPHINE SULFATE ER) 15 Mg Tablet.er, 15 MG PO BID for chronic pain control, #30 TAB.SR Prov:DENVER CAVAZOS MD 12/21/18 Alprazolam (XANAX) 1 Mg Tablet, 1 TAB PO TID PRN for ANXIETY / AGITATION, #30 TAB Prov:DENVER CAVAZOS MD 12/21/18 JANNETH CLEMONS MD Sep 26, 2019 11:26
--- NOTE | 2019-09-26 11:39 | PDOC ---
CARDIO Progress Notes Date and Time Date of Service 09/26/2019 Time of Evaluation 1130 Subjective Subjective: No shortness of breath, No Palpitations, Other (still has generalized aches and asking for more pain meds) Vitals Vitals Vital Signs Date Time Temp Pulse Resp B/P (MAP) Pulse Ox O2 Delivery O2 Flow Rate FiO2 09/26/19 10:54 98.1 74 18 111/79 (90) 97 Room Air 98.1 Weight Weight [ ] Input and Output Intake and Output Intake and Output 09/26/19 07:00 Intake Total 920 ml Balance 920 ml Intake Oral 920 ml # Voids 4 # Bowel Movements 1 Microbiology Micro Microbiology 09/23/19 Urine Culture - Final, Complete Physical Exam HEENT: Neck Supple W Full Motion Chest: Symmetric LUNGS: Clear to Auscultation Heart: RRR (SR/SB lowest in the 40s no pauses. ) Abdomen: Soft N/T Extremities: No Calf Tenderness Neurology: alert, oriented, follow commands Assessment Assessment 1. Atypical CP: doubt ACS. appears to be MSK. EF and WM nml 2. Abdominal pain with diarrhea and vomiting: defer to PCP. Recent ABx last week 3. HTN: controlled 4. Tobaccoism 5. Prolonged QTc: likely inaccurate with noted u wave associated with hypokalemia. Repeat EKG QTc better at 413 after K replacement 6. Hypokalemia: due to GI symptoms, better 7. Short NV interval: same as before, Potential underlying prexcitation. Noted with intermittent asymptomatic episodes of bradycardia in the 40s and PAT, none further overnight 8. Anxiety 9. Drug seeking behavior?: out of percocet. UDS + for opiates and benzos 10. Substance abuse: +marijuana but denies Recommendations 1. Moving forward pt will need MCOT to rule out any significant arrhythmias. Discussed with pt and encouraged to follow up in office. MCOT will be considered if pt does follow up in office. 2. Smoking cessation. Continue current BP regimen 3. May DC per cardiac standpoint Justicifation of Admission Dx: Justifications for Admission: Justification of Admission Dx: Yes Angina: New-Onset (with hypokalemia) RICKIE LOUIE APRN Sep 26, 2019 11:39
--- NOTE | 2019-09-26 13:26 | PDOC3 ---
Discharge Summary Visit Information Date of Admission: Sep 23, 2019 Date of Discharge: Sep 26, 2019 Admitting Diagnosis: Chest pain Final Diagnosis Problems Medical Problems: (1) Chest pain Status: Acute (2) Hypokalemia Status: Acute Brief Hospital Course Allergies Allergies Coded Allergies Type Severity Reaction Last Updated Verified Sulfa (Sulfonamide Antibiotics) Allergy Intermediate 08/09/17 Yes aspirin Allergy Intermediate 09/11/15 Yes ibuprofen Allergy Intermediate 09/11/15 Yes naproxen Allergy Intermediate 08/09/17 Yes Vital Signs Vital Signs Date Time Temp Pulse Resp B/P (MAP) Pulse Ox O2 Delivery O2 Flow Rate FiO2 09/26/19 11:57 99 Room Air 09/26/19 10:54 98.1 74 18 111/79 (90) 98.1 Lab Results Laboratory Tests Test 09/25/19 05:25 C-Reactive Protein, Quantitative 36.8 mg/L (0-3.3) Brief Hospital Course Ms Rey is a 58yo F w/ PMHX RA, HTN, allergies, asthma, anxiety, chronic back pain, anxiety admitted for worsening chest pressure that is generalized over the whole chest making her short of air. Pain has worsened over 2 days, and she is very anxious. marked stress, she has started smoking cigarettes again. She has been under a lot of stress and having a lot of anxiety due to a in the family. She states that she is had some nausea and vomiting. She states that she cannot take aspirin or ibuprofen or naproxen because it makes her very sick and makes her pass out. Patient states that she has a history of hypertension, RA, osteoporosis, anxiety. Patient is very tearful and anxious in the room. Patient rates her pressure chest pain a 9 out of 10 in a band-like distribution. Consults: Cardiology 09/24: CRP returned over 30. She still has the same pain complaints, she is asking to change her morphine to back to her long-acting. Placed on steroids for rheumatoid arthritis flare. ECHO: The left ventricular systolic function is normal. The Ejection Fraction is 55-60%. There is normal LV segmental wall motion. Mild tricuspid regurgitation. There is mild pulmonary hypertension. The PA pressure was estimated at 36 mmHg. There is no evidence of significant pericardial effusion. Feeling improved. She is tearful about having pain medications notes she is been placed on them for her rheumatoid arthritis, and that when she was younger in the 1980s she did use opioids and had to go on to methadone while she was . Given though her physical symptoms are better she is worried about opioid withdrawal, I have counseled her on continuing pain treatment for her rheumatoid arthritis flare for the next 6 days, and then a Suboxone taper after that. For diarrhea she may take Imodium 2 to 4 mg every 2 hours as needed, for cough anxiety or chills she may take dextromethorphan 10 mils every 4 hours as n eeded. Should be discharged with home health. Despite her lack of symptoms or contacts, she has requested COVID 19 testing, which I feel is appropriate to accommodate given the broad number of asymptomatic patients as well as the degree of community spread. We will contact her about the results Problem list: Chest pain - likely costochondritis vs GERD vs esophagitis from vomiting as well as RA flare up. Will have cardiology f/u oupatient for MCOT (mobile cardiac outpatient telemetry) Shortness of breath - seems to be having an asthma exacerbation Abdominal pain with diarrhea and vomiting - possibly antibiotic related. will check c diff HTN: controlled Tobaccoism - counseled on cessation Prolonged QTc: likely inaccurate with noted u wave associated with hypokalemia Hypokalemia - due to GI symptoms Short MN interval - same as before, Potential underlying prexcitation but currently no associated arrhythmias or presyncopal events. Anxiety Drug seeking behavior - UDS + for opiates and benzos. Has chronic meds for pain, I have offered her suboxone after her pain treatment course, she is scared, but amenable to this. Substance abuse - +marijuana but denies Greater than 30 minutes spent on d/c Discharge Information Condition at Discharge: Improved Follow Up: Weeks Disposition/Orders: D/C to Home w/ HH Scheduled Amlodipine Besylate (Amlodipine Besylate) 10 Mg Tablet, 10 MG PO DAILY, (Reported) Entered as Reported by: STEPHANIE BECERRIL on 08/10/17 1404 Last Action: Continued on 09/23/192101 by DENVER CAVAZOS Cetirizine Hcl (Zyrtec) 10 Mg Tablet, 1 TAB PO DAILY, #30 Ref 2 (Reported) Entered as Reported by: MARK ANTHONY MENJIVAR on 09/11/15 1518 Last Action: Continued on 09/23/192101 by DENVER CAVAZOS Diphenhydramine Hcl (Benadryl) 25 Mg Capsule, 1 CAP PO QHS, #30 Ref 1 (Reported) Entered as Reported by: MARK ANTHONY MENJIVAR on 09/11/15 1518 Last Action: Continued on 09/23/192101 by DENVER CAVAZOS Doxycycline Hyclate (Doxycycline Hyclate) 100 Mg Tablet, 100 MG PO BID for bronchitis, #20 Prescribed by: DENVER CAVAZOS on 12/21/18 0954 Last Action: HELD on 09/23/192101 by DENVER CAVAZOS Guaifenesin (Mucinex) 600 Mg Tablet.er, 600 MG PO BID for cough, #14 Prescribed by: DENVER CAVAZOS on 12/21/18 1016 Last Action: HELD on 09/23/192101 by DENVER CAVAZOS Montelukast Sodium (Montelukast Sodium Tablet ) 10 Mg Tablet, 10 MG PO QHS for Allergies for 30 Days, #30 Ref 5 Prescribed by: JANNETH CLEMONS MD on 09/26/19 1351 Pantoprazole Sodium (Pantoprazole Sodium ) 40 Mg Tablet.dr, 40 MG PO DAILYAC for GERD, #30 Ref 1 Prescribed by: DENVER CAVAZOS on 12/21/18 0942 Last Action: Continued on 09/24/19 1036 by JANNETH CLEMONS MD Potassium Chloride (Klor-Con M20) 20 Meq Tab.er.prt, 20 MEQ PO DAILY for Hypokalemia for 30 Days, #30 Prescribed by: JANNETH CLEMONS MD on 09/26/19 1351 Prednisone (Prednisone) 20 Mg Tablet, 20 MG PO DAILY for RA flare for 10 Days, #10 Prescribed by: JANNETH CLEMONS MD on 09/26/19 1123 Scheduled PRN Benzocaine/Menthol (Sore Throat Lozenge) 1 Each Lozenge, 1 FATUMA PO PRN Q2HRS PRN for SORE THROAT, #30 Prescribed by: DENVER CAVAZOS on 12/21/18 1016 Last Action: Continued on 09/23/192101 by DENVER CAVAZOS Oxycodone/Apap 5-325 (Percocet 5-325 Mg Tablet ) 1 Each Tablet, 1 TAB PO PRN Q6HRS PRN for PAIN for 6 Days, #16 Prescribed by: JANNETH CLEMONS MD on 09/26/19 1125 Discontinued Medications Alprazolam (Xanax) 1 Mg Tablet, 1 TAB PO TID PRN for ANXIETY / AGITATION, #30 Prescribed by: DENVER CAVAZOS on 12/21/18953 Last Action: Continued on 09/23/192101 by DENVER CAVAZOS Levofloxacin (Levaquin) 500 Mg Tablet, 1 TAB PO DAILY for INFECTION, #6 (Reported) Entered as Reported by: NESTOR PINTO RN on 12/21/18 1628 Last Action: HELD on 09/23/192101 by DENVER CAVAZOS Morphine Sulfate (Morphine Sulfate Er) 15 Mg Tablet.er, 15 MG PO BID for chronic pain control, #30 Prescribed by: DENVER CAVAZOS on 12/21/18953 Last Action: Continued on 09/25/19 1113 by JANNETH CLEMONS MD Justicifation of Admission Dx: Justifications for Admission: Justification of Admission Dx: Yes Angina: New-Onset (with hypokalemia) JANNETH CLEMONS MD Sep 26, 2019 13:26
[2019-09-26] MEDS ORDERED: POTA20TA4 PO (13:51)
[2019-09-26] MEDS ORDERED: MONT10TA49 PO (13:51)
[2019-09-26 14:39] VITALS: BP 118/81
== END 2019-09-26 16:10 | disposition home health service (06) | DRG 392 ==
LOC: ER 17:50 → 2 SOUTH 19:09
PROVIDERS: ADMIT Internal Medicine; ATTEND Internal Medicine
DX: K21.0 Gastro-esophageal reflux disease with esophagitis (principal); J45.901 Unspecified asthma with (acute) exacerbation; M94.0 Chondrocostal junction syndrome [Tietze]; E87.6 Hypokalemia; F17.210 Nicotine dependence, cigarettes, uncomplicated; F41.9 Anxiety disorder, unspecified; I10 Essential (primary) hypertension; I20.9 Angina pectoris, unspecified; I27.20 Pulmonary hypertension, unspecified; M81.0 Age-related osteoporosis without current pathological fracture; Z20.828 Contact with and (suspected) exposure to other viral communicable diseases; M06.9 Rheumatoid arthritis, unspecified; R94.31 Abnormal electrocardiogram [ECG] [EKG]; R00.1 Bradycardia, unspecified; G89.29 Other chronic pain; M19.90 Unspecified osteoarthritis, unspecified site; I07.1 Rheumatic tricuspid insufficiency; F12.90 Cannabis use, unspecified, uncomplicated; F13.10 Sedative, hypnotic or anxiolytic abuse, uncomplicated; F11.10 Opioid abuse, uncomplicated; M54.9 Dorsalgia, unspecified; Z91.81 History of falling; Z90.710 Acquired absence of both cervix and uterus; Z82.49 Family history of ischemic heart disease and other diseases of the circulatory system; Z76.5 Malingerer [conscious simulation]; Z86.19 Personal history of other infectious and parasitic diseases; Z88.6 Allergy status to analgesic agent; Z71.6 Tobacco abuse counseling; Z88.2 Allergy status to sulfonamides; Z90.722 Acquired absence of ovaries, bilateral
CPT/HCPCS: 36415; 71045; 80048; 80053; 80061; 80307; 81001; 82550; 83690; 83735; 83880; 84439; 84443; 84484; 85025; 85610; 86140; 87086; 93005; 93306; 94640; 96361; 96374; 96375; 99285; J1650; J2270; J2405; J2930; J3010; J3475; J7030; J7512; G0378; J7626; Q0163; U0003-CS